=== PATIENT | female | born 1950 | race Caucasian/White ===

== ENCOUNTER 2023-10-05 13:36 | Emergency (ER) | payer MEDICARE, OTHER, SELFPAY ==
[2023-10-05 13:37] VITALS: BP 148/101
[2023-10-05 13:39] VITALS: BMI 33.2
--- NOTE | 2023-10-05 13:58 | ED.GENMED ---
History of Present Illness
General
Chief Complaint: Fall
Time Seen by Provider: 10/05/23 13:55
Travel History
Have you had any contact with someone who has COVID-19?: No
Do you have any symptoms of coronavirus? Fever > 100 degrees, chills, cough, shortness of breath, sore throat, loss of taste or smell, muscle aches, or headache?: No
History of Present Illness
History of Present Illness:
HPI: Patient came in by ambulance after a fall from independent living at [facility]. She says that she tripped over her feet. She had no preceding chest pain or shortness of breath. She struck her face. She denies anticoagulation but does take a
baby aspirin daily. She has no new neck pain. She does have rather significant pain at the right knee and had trouble getting up initially however was able to bear weight prior to arrival.
EXAM:
GENERAL: Well appearing in no distress
HEENT: Moist oral mucosa, there is a 2.5 cm laceration which is V-shaped over the nasal bone
CARDIOVASCULAR: No murmurs, normal heart rate and rhythm, No chest wall tenderness
PULMONARY: No respiratory distress, breath sounds are clear and equal
ABDOMEN: Soft with no peritoneal signs, no tenderness, elevated BMI
NEUROLOGIC: Excellent strength all extremities, no coordination deficits
PSYCHIATRIC: Appropriate mental status, normal insight and judgement
EXTREMITIES: Nontender, no edema, moves all extremities equally, there is a 1 cm laceration to the volar aspect of the left wrist, there is no foreign body noted, there is no bony tenderness at the distal radius/ulna. There is significant
ecchymosis and soft tissue swelling over the right patella with decreased active range of motion into flexion
SKIN: As above
ED COURSE:
2:05 PM: I initially evaluated patient
NUMBER AND COMPLEXITY OF PROBLEMS ADDRESSED AT THE ENCOUNTER
� Chronic conditions affecting care: Migraine headache, asthma/chronic cough, high blood pressure
� Acute Exacerbation and/or Progression of Chronic Illness: This is an acute problem
� Differential Diagnosis includes: Patellar fracture, intracranial hemorrhage, facial bone fracture, contusions
AMOUNT AND/OR COMPLEXITY OF DATA TO BE REVIEWED AND ANALYZED
� I performed an independent evaluation of and my interpretation is:
EKG:
CT: CAT scan of the brain and facial bones showed no acute abnormality other than soft tissue swelling
X-rays: X-ray of the right knee shows no patellar fracture but does show rather significant soft tissue swelling
Laboratory Studies:
Other:
� Review of other/old records: I reviewed records, the patient had a colonoscopy last year
� Clinical information was obtained by an independent historian: I spoke to the son at bedside
� Prescriptions/Medications Considered but not given:
� Further testing considered but not performed:
RISK OF COMPLICATIONS AND/OR MORBIDITY OR MORTALITY OF PATIENT MANAGEMENT
� Social determinants of health affecting care: Comes in from [facility] independent living
� Discussion with other providers:
� Escalation of care including admission/observation vs risk of discharge considered: Given patient's age on antiplatelet will obtain CT imaging of the facial bones and head and also obtain x-ray of the right knee. CT and x-rays
relatively unremarkable. I reassessed patient at 4:20 PM, she appears fairly comfortable at rest. We were able to assist her getting up and she was able to bear weight and says that she uses a walker at the facility and they can help her there as
well.
Past History
Past History
ED Past Medical History: GERD, HTN and Hypercholesterolemia
ED Past Surgical History: Gynecological
Social History
Tobacco: Non-smoker
Alcohol: None
Drug: None
Personal:
Living: with family
Employment: Retired
Family History
Family History: CAD
Phy Exam
Physical Exam
Physical Exam:
See HPI
Course
Orders/Labs/Results
Orders:
Orders
10/05/23 14:11
CT Facial Bones W/o Iv Contras Urgent
Comment:
Reason For Exam: trauma
CT Head W/o Iv Contrast Urgent
Comment:
Reason For Exam: trauma
Tetanus/Diphth/Acelpertussis [Adacel] 0.5 ml IM .ONCE ONE
CR Knee- Right 4 Or More View* Urgent
Comment:
Reason For Exam: trauma
Vital Signs
Initial and Last Documented VS:
Initial Vital Signs
Temp Pulse Resp BP Pulse Ox
97.4 F 95 16 148/101 98
10/05/23 13:37 10/05/23 13:37 10/05/23 13:37 10/05/23 13:37 10/05/23 13:37
Last Documented Vital Signs
Temp Pulse Resp BP Pulse Ox
97.4 F 95 16 148/101 98
10/05/23 13:37 10/05/23 13:37 10/05/23 13:37 10/05/23 13:37 10/05/23 13:37
Procedures
Laceration Closure
Left Anterior Wrist:
Status of Wound: clean
Description of Wound Edges: sharp
Anesthesia: 1% Lidocaine with epi
Skin Closure Material: 5-0 prolene
Number of sutures: 3
Bilateral Anterior Proximal Nose:
Status of Wound: clean
Description of Wound Edges: sharp
Preparation: cleaned with saline
Anesthesia: 1% Lidocaine with epi
Skin Closure Material: 5-0 prolene
Number of sutures: 3
*Critical Care Note
Total Time (30-74mins, 75-104mins- exclusive of procedures): Not Applicable
ED Attending Note
-
Portions of this chart may have been created with voice recognition software.� Occasional wrong word or��sound alike� substitutions may have occurred due to the inherent limitations of voice recognition software.
Discharge Plan
Departure
Patient Disposition: Home (Routine Discharge)
Date of Disposition: 10/05/23
Time of Disposition: 16:23
Patient with high blood pressure during this ER visit?: Yes
Discharge Problem:
Contusion
Instructions: Contusion (DC), Laceration Repair With Stitches (DC), BLOOD PRESSURE
Prescriptions:
No Action
celecoxib [Celebrex] 200 MG capsule
200 mg PO DAILY
mmkxdgfaoz-lgwiadaydwzzl-rwiy 1 EACH tablet
2 ea PO PRN PRN (Reason: pain)
pantoprazole 40 MG tablet,delayed release (DR/EC)
40 mg PO DAILY
docusate sodium 100 MG capsule
1 cap PO BID
montelukast [Singulair] 10 MG tablet
10 mg PO HS
fluticasone propionate 16 GRAM spray,suspension
2 spray intranasal HS
gc-ias-VP-Xn-Mq-pyvfvvp-lutein 1 EACH tablet
1 ea PO DAILY
cholecalciferol (vitamin D3) [Vitamin D3] 2,000 UNIT capsule
2,000 unit PO DAILY
Parafon Forte:
500 mg PO PRN PRN (Reason: pain)
guaifenesin 600 MG tablet extended release
600 mg PO BID
polyethylene glycol 3350 17 GRAMS powder in packet
8.5 grams PO HS
amitriptyline 10 MG tablet
20 mg PO HS
aspirin 81 MG tablet,chewable
81 mg PO DAILY
quinapril 20 MG tablet
40 mg PO DAILY
atorvastatin 40 MG tablet
40 mg PO QPM
indapamide 1.25 MG tablet
1.25 mg PO DAILY
fluticasone propionate 1 SPRAY spray,suspension
1 spray intranasal PRN PRN (Reason: ALLERGIES)
loratadine 10 MG tablet
10 mg PO HS
Pro-Air Inhaler
2 puff inhalation PRN PRN (Reason: allergies)
Tylenol Extra Strength
1,000 mg PO PRN PRN (Reason: pain)
Lactobacillus acidophilus [Acidophilus] 1 EACH capsule
2 cap PO DAILY
Referrals:
Ge Alvarado MD [Family Provider] -
Activity Restrictions/Additional Instructions:
The CAT scan of the brain shows no internal bleeding and the CAT scan of the facial bones shows no fracture. I recommend that you have the stitches removed from the face next Thursday by your primary care doctor. I recommend that you have the
stitches removed from the left wrist either on Thursday or when you see them on for your shot. The x-ray of the knee showed no sign of fracture but does show swelling. Continue using ice as needed. Return here if worse.
Interventions
Interventions:
*Risk Screen - Suicide Last Done: 10/05/23 13:39
*General Assessment Last Done: 10/05/23 13:39
*Neglect/Abuse Screening Last Done: 10/05/23 13:39
*ED COVID-19 Vaccine History Last Done: 10/05/23 13:39
ED-Musculoskeletal Assessment Last Done: 10/05/23 14:54
ED- Neurological Assessment Last Done: 10/05/23 14:54
ED-Skin Assessment Last Done: 10/05/23 14:54
[2023-10-05] MEDS: ADACEL 0.5 ML IM (16:28)
== END 2023-10-05 16:50 | disposition home or self-care (01) ==
LOC: EMR 13:36
PROVIDERS: EMERGENCY PHYSICIAN Emergency Medicine; FAMILY PHYSICIAN Family Medicine
DX: S80.01XA Contusion of right knee, initial encounter (principal); S01.21XA Laceration without foreign body of nose, initial encounter; S61.512A Laceration without foreign body of left wrist, initial encounter; W19.XXXA Unspecified fall, initial encounter; Z23 Encounter for immunization; M25.561 Pain in right knee; J45.909 Unspecified asthma, uncomplicated; E78.00 Pure hypercholesterolemia, unspecified; I10 Essential (primary) hypertension; K21.9 Gastro-esophageal reflux disease without esophagitis
CPT/HCPCS: 99284; 12011; 90471; 70450; 70486; 73564; 90715

== ENCOUNTER → 2023-10-27 10:25 | Outpatient (REF) | payer MEDICARE, OTHER, SELFPAY ==
[2023-10-27 11:20] LABS: ALT (SGPT) 29 U/L (0-35); AST (SGOT) 29 U/L (14-36); Albumin 4.9 g/dl (3.5-5.0); Alkaline Phosphatase 154 U/L (38-126); Blood Urea Nitrogen 16 mg/dl (7-17); Calcium 10.2 mg/dl (8.4-10.2); Carbon Dioxide 30 mmol/L (22-30); Chloride 94 mmol/L (98-107); Glucose 91 mg/dl (70-99); HDL Cholesterol 52 mg/dl; LDL Cholesterol, Calculated 75 mg/dl; Potassium 4.2 mmol/L (3.5-5.1); Sodium 132 mmol/L (135-145); Total Bilirubin 0.5 mg/dl (0.2-1.3); Total Cholesterol 157 mg/dl (50-199); Total Protein 7.6 g/dl (6.3-8.2); Triglyceride 152 mg/dl (10-149); Very Low Density Lipoprotein 30 mg/dl (0-30); eGFR > 60.00
[2023-10-27 11:31] LABS: Intact PTH 65.8 pg/ml (13.6-85.8)
== END ==
LOC: OLABPV 10:25
PROVIDERS: ATTENDING PHYSICIAN Family Medicine
DX: E78.2 Mixed hyperlipidemia (principal); E83.52 Hypercalcemia
CPT/HCPCS: 36415; 80053; 80061; 83970

== ENCOUNTER → 2023-11-10 15:20 | Outpatient (REF) | payer MEDICARE, OTHER, SELFPAY | LOC: WDC 15:20 | PROVIDERS: ATTENDING PHYSICIAN Family Medicine | DX: R92.8 Other abnormal and inconclusive findings on diagnostic imaging of breast (principal) | CPT/HCPCS: 77061; 77065 ==

== ENCOUNTER 2023-12-10 15:35 | Emergency (ER) | payer MEDICARE, OTHER, SELFPAY ==
[2023-12-10 15:40] VITALS: BP 130/95; BMI 31.7
[2023-12-10 16:11] VITALS: BMI 33.7
[2023-12-10 16:15] VITALS: BP 146/71
[2023-12-10 17:00] VITALS: BP 137/69
[2023-12-10 18:00] VITALS: BP 135/63
--- NOTE | 2023-12-10 18:20 | ED.GENMED ---
History of Present Illness
General
Chief Complaint: Fall
Source: patient
Exam Limitations: none
Time Seen by Provider: 12/10/23 16:05
Nursing documentation reviewed up to this point in time: agreed with
Travel History
Have you had any contact with someone who has COVID-19?: No
Do you have any symptoms of coronavirus? Fever > 100 degrees, chills, cough, shortness of breath, sore throat, loss of taste or smell, muscle aches, or headache?: No
History of Present Illness
History of Present Illness:
73-year-old female with past medical history as documented presents to the emergency room with her son for evaluation after mechanical fall with head trauma. Patient reports that she got her bed this morning and she lost her balance and fell
forward and struck the right side of her face on the floor. She did not pass out or lose consciousness. She was able to get up on her own and has been ambulatory since the fall. She does have significant bruising around the right eye and son
brought her to the emergency room to assess. She says that she has a mild headache but denies any other complaints. Denies any neck pain. Denies any back pain. Denies any chest or abdominal pain. She denies any pain in her extremities. She
denies any nausea or vomiting. She denies any loss of vision or eye pain. She denies being on any blood thinners.
Past History
Past History
ED Past Medical History: GERD, HTN and Hypercholesterolemia
ED Past Surgical History: Gynecological
Social History
Tobacco: Non-smoker
Alcohol: None
Drug: None
Personal:
Living: with family
Employment: Retired
Family History
Family History: CAD
Review of Systems
Review of Systems
All Other Systems: ROS reviewed and negative except as documented in HPI and ROS
Constitutional: Denies fever
EENT: Denies sore throat or runny nose
Respiratory: Denies cough or trouble breathing
Cardiac: Denies chest pain or palpitations
ABD/GI: Denies abdominal pain, nausea or vomiting
: Denies flank pain
Musculoskeletal: Denies neck pain or back pain
Neurological: Reports headache; Denies dizzy, weakness or numbness
Phy Exam
Physical Exam
Physical Exam:
General: Awake, alert, oriented x3; no acute distress
Head: Normocephalic, right periorbital ecchymosis and edema
Eyes: She has right periorbital edema and swelling of the eyelid with difficulty opening however conjunctiva are normal, EOMI without pain, pupils equal round and reactive to light bilaterally, visual ulrich intact
Throat: Airway intact, handling secretions
Neck: Trachea midline, no cervical spine tenderness, good range of motion in cervical spine without pain, prior surgical scar
Lungs: Breathing comfortably no distress
Heart: Regular rate and rhythm, no murmurs, gallops, or rubs; no rib tenderness
Abd: Soft, non distended, nontender
Back: No tenderness in the thoracic or lumbar spine and no signs of trauma to the back or flank; prior surgical scars on back
Neuro: Cranial nerves grossly intact, speech fluid, motor and sensory function intact upper and lower extremities
Skin: no rash
Extremities: Atraumatic, warm and well-perfused, full range of motion in all joints of upper and lower extremities without pain
Scores
Heart Failure Risk
Heart Failure Risk Score: Not Applicable
Heart Score for Chest Pain Patients
STEMI patient?: Not applicable
Withdrawal Assessment of Alcohol
Withdrawal Assessment Completed?: Not applicable
Course
Orders/Labs/Results
Orders:
Orders
12/10/23 15:38
CT Head W/o Iv Contrast Urgent
Comment:
Reason For Exam: head strike with right eye swelling
12/10/23 16:06
CT Cervical Spine W/o Iv Contr Urgent
Comment:
Reason For Exam: fall with headstrike
Vital Signs
Initial and Last Documented VS:
Initial Vital Signs
Temp Pulse Resp BP Pulse Ox
36.7 C 87 16 130/95 97
12/10/23 15:40 12/10/23 15:40 12/10/23 15:40 12/10/23 15:40 12/10/23 15:40
Last Documented Vital Signs
Temp Pulse Resp BP Pulse Ox
36.7 C 79 18 135/63 99
12/10/23 15:40 12/10/23 18:00 12/10/23 18:00 12/10/23 18:00 12/10/23 18:00
MDM/Problems Addressed
Differential Diagnosis Includes:
Orbital fracture, maxillary fracture, intracranial hemorrhage, periorbital hematoma
MDM/Problems Addressed:
73-year-old female presents for evaluation after mechanical fall with head trauma. She has right periorbital ecchymosis no other serious injuries. Eye exam is normal. Vital signs are normal. Rest of exam as above. Plan to check CT head and
cervical spine. Monitor closely reassess at the above.
CT head and cervical spine show right periorbital hematoma but no other acute pathology. Patient remains awake and alert well-appearing. Advised ice, rest, Tylenol/Motrin as needed. She will follow-up with her primary doctor next week. Spoke
about return precautions all questions answered.
*Radiology
Radiology exam reviewed: radiology read reviewed
*Pulse Oximetry
Patient hypoxic: no
*Critical Care Note
Total Time (30-74mins, 75-104mins- exclusive of procedures): Not Applicable
Data Reviewed
Source: patient and family (Son)
ED Attending Note
-
Portions of this chart may have been created with voice recognition software.� Occasional wrong word or��sound alike� substitutions may have occurred due to the inherent limitations of voice recognition software.
Discharge Plan
Departure
Patient Disposition: Home (Routine Discharge)
Date of Disposition: 12/10/23
Time of Disposition: 18:03
Patient with high blood pressure during this ER visit?: No
Discharge Problem:
Periorbital hematoma of right eye
Instructions: Hematoma
Prescriptions:
No Action
celecoxib [Celebrex] 200 MG capsule
200 mg PO DAILY
juiiwolzqt-tclndhfnqfocv-yxqk 1 EACH tablet
2 ea PO PRN PRN (Reason: pain)
pantoprazole 40 MG tablet,delayed release (DR/EC)
40 mg PO DAILY
docusate sodium 100 MG capsule
1 cap PO BID
montelukast [Singulair] 10 MG tablet
10 mg PO HS
fluticasone propionate 16 GRAM spray,suspension
2 spray intranasal HS
mx-cgy-LH-Ni-Pr-htaxbse-lutein 1 EACH tablet
1 ea PO DAILY
cholecalciferol (vitamin D3) [Vitamin D3] 2,000 UNIT capsule
2,000 unit PO DAILY
Parafon Forte:
500 mg PO PRN PRN (Reason: pain)
guaifenesin 600 MG tablet extended release
600 mg PO BID
polyethylene glycol 3350 17 GRAMS powder in packet
8.5 grams PO HS
amitriptyline 10 MG tablet
20 mg PO HS
aspirin 81 MG tablet,chewable
81 mg PO DAILY
quinapril 20 MG tablet
40 mg PO DAILY
atorvastatin 40 MG tablet
40 mg PO QPM
indapamide 1.25 MG tablet
1.25 mg PO DAILY
fluticasone propionate 1 SPRAY spray,suspension
1 spray intranasal PRN PRN (Reason: ALLERGIES)
loratadine 10 MG tablet
10 mg PO HS
Pro-Air Inhaler
2 puff inhalation PRN PRN (Reason: allergies)
Tylenol Extra Strength
1,000 mg PO PRN PRN (Reason: pain)
Lactobacillus acidophilus [Acidophilus] 1 EACH capsule
2 cap PO DAILY
Referrals:
Afton,Ge D., MD [Family Provider] - Follow up in 5-7 days
Activity Restrictions/Additional Instructions:
Thank you for visiting the Emergency Department at [facility].
1. Please schedule a follow up appointment as directed. Call first thing tomorrow morning to make an appointment.
2. If indicated, please take your medications as instructed and indicated on discharge paperwork.
3. If any of your symptoms do not improve, or persist, or become more severe within 6-12 hours, please return to the emergency department for further care.
4. Please return to the emergency department if you develop a headache, neck pain/stiffness, fever greater than 100.4F, chest pain, shortness of breath, persistent nausea, vomiting, slurred speech, difficulty walking, numbness/tingling, weakness,
signs of infection or any other symptoms that are worrisome to you.
Please call [phone] if you have any questions.
Interventions
Interventions:
*Risk Screen - Suicide Last Done: 12/10/23 15:40
*General Assessment Last Done: 12/10/23 16:12
*Neglect/Abuse Screening Last Done: 12/10/23 15:40
*ED COVID-19 Vaccine History Last Done: 12/10/23 15:40
*Nursing Disposition Last Done: 12/10/23 18:20
ED-Musculoskeletal Assessment Last Done: 12/10/23 16:18
ED- Neurological Assessment Last Done: 12/10/23 16:18
ED-Skin Assessment Last Done: 12/10/23 16:18
Discharge Date and Time
Print Language: COMORAN
== END 2023-12-10 18:31 | disposition home or self-care (01) ==
LOC: EMR 15:35
PROVIDERS: EMERGENCY PHYSICIAN Emergency Medicine; FAMILY PHYSICIAN Family Medicine
DX: S05.11XA Contusion of eyeball and orbital tissues, right eye, initial encounter (principal); W19.XXXA Unspecified fall, initial encounter
CPT/HCPCS: 99285; 70450; 72125

== ENCOUNTER → 2024-03-01 11:03 | Outpatient (REF) | payer MEDICARE, OTHER, SELFPAY ==
[2024-03-01 13:38] LABS: ALT (SGPT) 24 U/L (0-35); AST (SGOT) 25 U/L (14-36); Albumin 4.6 g/dl (3.5-5.0); Alkaline Phosphatase 135 U/L (38-126); Blood Urea Nitrogen 20 mg/dl (7-17); Calcium 10.2 mg/dl (8.4-10.2); Carbon Dioxide 27 mmol/L (22-30); Chloride 95 mmol/L (98-107); GGTP 51 U/L (12-43); Glucose 100 mg/dl (70-99); HDL Cholesterol 43 mg/dl; LDL Cholesterol, Calculated 80 mg/dl; Potassium 4.2 mmol/L (3.5-5.1); Sodium 132 mmol/L (135-145); Total Bilirubin 0.6 mg/dl (0.2-1.3); Total Cholesterol 146 mg/dl (50-199); Total Protein 6.8 g/dl (6.3-8.2); Triglyceride 117 mg/dl (10-149); Very Low Density Lipoprotein 23 mg/dl (0-30); eGFR > 60.00
== END ==
LOC: OLABPV 11:03
PROVIDERS: ATTENDING PHYSICIAN Family Medicine
DX: I10 Essential (primary) hypertension (principal); E78.2 Mixed hyperlipidemia; R74.8 Abnormal levels of other serum enzymes
CPT/HCPCS: 36415; 80053; 80061; 82977

== ENCOUNTER → 2024-03-17 16:06 | Outpatient (REF) | payer MEDICARE, OTHER, SELFPAY | LOC: RAD 16:06 | PROVIDERS: ATTENDING PHYSICIAN Family Medicine | DX: J45.21 Mild intermittent asthma with (acute) exacerbation (principal) | CPT/HCPCS: 71046 ==

== ENCOUNTER → 2024-04-08 10:36 | Outpatient (REF) | payer MEDICARE, OTHER, SELFPAY | LOC: RAD 10:36 | PROVIDERS: ATTENDING PHYSICIAN Nurse Practitioner; FAMILY PHYSICIAN Family Medicine | DX: R60.0 Localized edema (principal) | CPT/HCPCS: 93971 ==

== ENCOUNTER → 2024-04-29 13:52 | Outpatient (REF) | payer MEDICARE, OTHER, SELFPAY | LOC: WDC 13:52 | PROVIDERS: ATTENDING PHYSICIAN Family Medicine; OTHER PHYSICIAN Podiatrist Primary Podiatric Medicine | DX: Z12.31 Encounter for screening mammogram for malignant neoplasm of breast (principal); M79.672 Pain in left foot | CPT/HCPCS: 73630 ==

== ENCOUNTER → 2024-05-06 14:47 | Outpatient (REF) | payer MEDICARE, OTHER, SELFPAY ==
[2024-05-06 18:21] LABS: Urine Albumin Trace (Neg - Trace); Urine Bilirubin Negative (Negative); Urine Character Clear (Clear); Urine Color Yellow; Urine Glucose Negative (Negative); Urine Ketone Negative (Negative); Urine Leukocyte Negative (Negative); Urine Nitrite Negative (Negative); Urine Occult Blood Negative (Negative); Urine Urobilinogen Negative (Neg - 1+)
== END ==
LOC: CLAB 14:47
PROVIDERS: ATTENDING PHYSICIAN Family Medicine
DX: R60.0 Localized edema (principal)
CPT/HCPCS: 36415; 81003

== ENCOUNTER → 2024-05-11 13:19 | Outpatient (REF) | payer MEDICARE, OTHER, SELFPAY ==
[2024-05-11 15:29] LABS: ALT (SGPT) 25 U/L (0-35); AST (SGOT) 28 U/L (14-36); Albumin 4.5 g/dl (3.5-5.0); Alkaline Phosphatase 158 U/L (38-126); Blood Urea Nitrogen 16 mg/dl (7-17); Calcium 9.9 mg/dl (8.4-10.2); Carbon Dioxide 26 mmol/L (22-30); Chloride 95 mmol/L (98-107); Glucose 107 mg/dl (70-99); Potassium 4.3 mmol/L (3.5-5.1); Sodium 137 mmol/L (135-145); Total Bilirubin 0.6 mg/dl (0.2-1.3); Total Protein 6.9 g/dl (6.3-8.2); eGFR > 60.00
[2024-05-11 15:57] LABS: TSH Reflex To Free T4 1.85 uIU/ml (0.47-4.68)
== END ==
LOC: OLABPV 13:19
PROVIDERS: ATTENDING PHYSICIAN Family Medicine
DX: R60.0 Localized edema (principal)
CPT/HCPCS: 36415; 80053; 84443

== ENCOUNTER → 2024-05-24 16:34 | Outpatient (REF) | payer MEDICARE, OTHER, SELFPAY | LOC: RAD 16:34 | PROVIDERS: ATTENDING PHYSICIAN Family Medicine | DX: R60.0 Localized edema (principal); M79.605 Pain in left leg | CPT/HCPCS: 73590 ==

== ENCOUNTER 2024-06-21 13:57 | Outpatient (RCR) | payer MEDICARE, OTHER, SELFPAY | END 2024-06-21 23:59 | disposition home or self-care (01) | LOC: RPT 13:57 | PROVIDERS: ATTENDING PHYSICIAN Dermatology; FAMILY PHYSICIAN Family Medicine | DX: I89.0 Lymphedema, not elsewhere classified (principal); Z73.6 Limitation of activities due to disability | CPT/HCPCS: 97163; 97535; 97760 ==

== ENCOUNTER → 2024-06-24 15:06 | Outpatient (REF) | payer MEDICARE, OTHER, SELFPAY | LOC: RAD 15:06 | PROVIDERS: ATTENDING PHYSICIAN Family Medicine | DX: R60.0 Localized edema (principal) | CPT/HCPCS: 93970 ==

== ENCOUNTER → 2024-07-05 10:37 | Outpatient (REF) | payer MEDICARE, OTHER, SELFPAY ==
[2024-07-05 11:46] LABS: ALT (SGPT) 25 U/L (0-35); AST (SGOT) 29 U/L (14-36); Albumin 4.9 g/dl (3.5-5.0); Alkaline Phosphatase 140 U/L (38-126); Blood Urea Nitrogen 21 mg/dl (7-17); Carbon Dioxide 26 mmol/L (22-30); Chloride 96 mmol/L (98-107); Glucose 100 mg/dl (70-99); HDL Cholesterol 46 mg/dl; LDL Cholesterol, Calculated 82 mg/dl; Potassium 4.4 mmol/L (3.5-5.1); Sodium 138 mmol/L (135-145); Total Bilirubin 0.4 mg/dl (0.2-1.3); Total Cholesterol 149 mg/dl (50-199); Total Protein 7.5 g/dl (6.3-8.2); Triglyceride 108 mg/dl (10-149); Very Low Density Lipoprotein 21 mg/dl (0-30); eGFR > 60.00
[2024-07-05 11:57] LABS: GGTP 43 U/L (12-43)
== END ==
LOC: OLABPV 10:37
PROVIDERS: ATTENDING PHYSICIAN Family Medicine
DX: E78.2 Mixed hyperlipidemia (principal); R74.8 Abnormal levels of other serum enzymes
CPT/HCPCS: 36415; 80053; 80061; 82977

== ENCOUNTER 2024-07-30 04:10 | Inpatient (IN) | payer MEDICARE, OTHER, SELFPAY ==
[2024-07-29 19:59] VITALS: BP 106/56
[2024-07-29 20:23] LABS: % Basophils 0.1 % (0-2); % Eosinophils 0.1 % (0-6); % Immature Granulocytes 0.7 % (0-0.5); % Lymphocytes 10.3 % (20.5-51.1); % Neutrophils 78.8 % (42.2-75.2); Absolute Immature Granulocytes 0.1 10^3/uL (0-0.05); Absolute Lymphocytes 1.9 10^3/uL (1.2-3.4); Absolute Monocytes 1.9 10^3/uL (0.1-0.6); Absolute Neutrophils 14.8 10^3/uL (1.4-6.5); Hematocrit 33.2 % (37.0-47.0); Hemoglobin 12.2 g/dL (12.0-16.0); Mean Corp Hgb Conc. 36.7 g/dL (33.0-37.0); Mean Corpuscular Hgb 32.1 pg (27.0-31.0); Mean Corpuscular Volume 87.4 fL (81.0-99.0); Mean Platelet Volume 7.7 fL (7.4-10.4); Nucleated Red Blood Cells % 0 %; Platelet Count 368 10^3/uL (130-400); Red Cell Dist. Width 12.8 % (11.5-14.5); White Blood Cell Count 18.8 10^3/uL (4.8-10.8)
[2024-07-29 20:49] LABS: ALT (SGPT) 36 U/L (0-35); AST (SGOT) 54 U/L (14-36); Alkaline Phosphatase 113 U/L (38-126); Blood Urea Nitrogen 28 mg/dl (7-17); Calcium 9.2 mg/dl (8.4-10.2); Carbon Dioxide 27 mmol/L (22-30); Chloride 82 mmol/L (98-107); Glucose 144 mg/dl (70-99); Potassium 4.4 mmol/L (3.5-5.1); Sodium 119 mmol/L (135-145); Total Bilirubin 0.8 mg/dl (0.2-1.3); Total Protein 6.2 g/dl (6.3-8.2); eGFR > 60.00
[2024-07-29 22:32] LABS: Urine Albumin Trace (Neg - Trace); Urine Bilirubin Negative (Negative); Urine Character Clear (Clear); Urine Color Yellow; Urine Glucose Negative (Negative); Urine Ketone Negative (Negative); Urine Leukocyte 2+ (Negative); Urine Nitrite Negative (Negative); Urine Occult Blood Negative (Negative); Urine Specific Gravity 1.015 (<1.030); Urine Urobilinogen Negative (Neg - 1+)
[2024-07-29 22:42] VITALS: BP 123/66
[2024-07-29 22:49] LABS: Urine Red Blood Cell 0-2 /HPF (0-2); Urine Squamous Cell 16-20 /LPF (Few)
[2024-07-29 22:50] LABS: Urine Bacteria Moderate (Negative); Urine Urothelial Cell 0-2 /LPF (FEW)
[2024-07-29 23:00] VITALS: BP 131/62
[2024-07-30] VITALS (15 sets, daily range): BP systolic 98–170; BP diastolic 50–79; PULSE 86–96; O2SAT 96; BMI 31.3
--- NOTE | 2024-07-30 00:17 | ED.GENMED ---
History of Present Illness
<ROSA M Rey - Last Filed: 07/30/24 00:53>
General
Chief Complaint: Back Pain
Source: patient
Time Seen by Provider: 07/30/24 00:06
Nursing documentation reviewed up to this point in time: agreed with
History of Present Illness
History of Present Illness:
Pt is a 74 yo F with a history of total reconstructive surgery of the spine in 2013 and cervical spine surgery in 2016 who presents to the ED tonight for lower back pain x 1 week. Pt states that the back pain is located in her b/l lower back. She
explains that sometimes one side is worse than the other. She reports that at times the back pain radiates down her leg to her knee, which she describes the pain as electric. She states that the pain is intermittent, and rates it a 10/10 when it
radiates down her leg. She reports that the pain will come on when she at rest or moving. Pt denies having pain radiating down to her legs previously. Pt denies any recent trauma, falls, or injury. Pt reports that on Thursday she had darkened urine
with some blood in the urine, which has since resolved. She denies dysuria, burning with urination, numbness or tingling in lower extremities, fever, chills, abdominal pain. Pt states that she is currently on prednisone. She reports that she has a
prescription of Percocet, and her last dose of it was at 6:30pm.
Past History
<ROSA M Rey - Last Filed: 07/30/24 00:53>
Past History
ED Past Medical History: GERD, HTN and Hypercholesterolemia
ED Past Surgical History: Gynecological
Social History
Tobacco: Non-smoker
Alcohol: None
Drug: None
Personal:
Living: with family
Employment: Retired
Family History
Family History: CAD
Review of Systems
<ROSA M Rey - Last Filed: 07/30/24 00:53>
Review of Systems
Allergies reviewed?: Yes
Constitutional: Reports no symptoms
Respiratory: Reports no symptoms
Cardiac: Reports no symptoms
ABD/GI: Reports no symptoms
: Reports dark urine
Musculoskeletal: Reports back pain
Neurological: Reports no symptoms
Phy Exam
<Norma Martinez, [facility] - Last Filed: 07/30/24 00:53>
General Physical Exam
General Presentation: well appearing
General age: appears stated age
General Skin: warm
General Habitus: normal
General Mental: alert
General Hydration: appears well hydrated
Cardiovascular Exam
Cardiovascular Exam: regular rate/rhythm
Pulmonary Exam
Pulmonary Exam: lungs clear
Musculoskeletal Exam
Musculoskeletal Exam: back pain (pt in severe distress and pain when attempting to sit up. Pt could not lean forward due to pain)
Course
<Norma Martinez, [facility] - Last Filed: 07/30/24 00:53>
Orders/Labs/Results
Orders:
Orders
07/29/24 20:11
C-Reactive Protein Urgent
Comment: ADDED
Complete Blood Count/With Diff Urgent
Comprehensive Metabolic Panel Urgent
Erythrocyte Sed Rate Urgent
Comment: ADDED
Osmolality, Random Urine Urgent
Date Specimen was Collected: 07/29/24
Time Specimen was Collected: 20:06
Comment: ADDED
Serum Osmolality Urgent
Comment: ADDED
Urinalysis Reflex To Culture Urgent
Date Specimen was Collected: 07/29/24
Time Specimen was Collected: 20:06
Urine Microscopic Reflex Cult Urgent
Urine Sodium Urgent
Date Specimen was Collected: 07/29/24
Time Specimen was Collected: 20:06
Comment: ADDED
Urine Culture Urgent
ASHLYN Source: U
Specimen Description:
Date Specimen was Collected: 07/29/24
Time Specimen was Collected: 20:06
07/30/24 01:07
CT Abd/pelvis W Iv Cont Urgent
Comment:
Reason For Exam: severe LBP, hyponatremia, intermittent (?hematuria
07/30/24 01:13
Morphine Sulfate 4 mg IV NOW STA
07/30/24 03:38
Admit/Transfer Patient As Directed
Co-Sign Provider:
Level of Care: Inpatient admission
Assign to:: Telemetry
Physician / Group: hospitalist
Diagnosis: hyponatremia
Reason for Telemetry: Other
Other Reason for Telemetry: hyponatremia
Date to Stop Telemetry: 08/01/24
Time to Stop Telemetry: 11:00
Reason for Hospitalization: hyponatremia
Expected length of stay greater than two midnights?: Yes
ELOS- Estimated Length of Stay in days: 2
I certify the patient meets the requirements for IP care: Yes
PRN Pain Medication Management As Directed
May give lesser potent ordered pain med per pt: Yes
preference::
Protocol:: Medication orders for pain may be administered in a
manner that supports deferring to patient preference
when the pt is:
- Requesting an ordered lesser potent pain medication.
Least to most potent pain medications are defined
as: acetaminophen < NSAID < tramadol < opioids
(morphine, oxycodone, hydromorphone).
- Requesting a lesser dose of the same medication IF
ORDERED.
- Requesting a less intrusive route of administration
if both routes are prescribed by the provider (PO <
IV).
07/30/24 03:40
Code Status As Directed
Resuscitation Status: Full Code
07/30/24 03:48
PRN Pain Medication Management As Directed
May give lesser potent ordered pain med per pt: Yes
preference::
Protocol:: Medication orders for pain may be administered in a
manner that supports deferring to patient preference
when the pt is:
- Requesting an ordered lesser potent pain medication.
Least to most potent pain medications are defined
as: acetaminophen < NSAID < tramadol < opioids
(morphine, oxycodone, hydromorphone).
- Requesting a lesser dose of the same medication IF
ORDERED.
- Requesting a less intrusive route of administration
if both routes are prescribed by the provider (PO <
IV).
07/30/24 03:55
3% Sodium Chloride 250 ml [Sodium Chloride 3%] 250 ml IV ONCE
07/30/24 05:38
Acetaminophen [Tylenol] 650 mg PO Q4HPRN PRN
Albuterol [ProAIR HFA INHALER] 2 puff INH R Q6HPRN PRN
Bisacodyl [Dulcolax] 10 mg RECTAL [id number] PRN
Docusate W/Senna [Senokot-S] 1 tablet PO BIDPRN PRN
HYDROmorphone [Dilaudid] 0.5 mg IV Q4HPRN PRN
Ondansetron Injectable [Zofran] 4 mg IV Q6HPRN PRN
Oxycodone/Acetaminophen [Percocet 5/325] 1 tablet PO Q4HPRN PRN
fluticasone propionate 1 spray NASAL PRN PRN
07/30/24 05:38
NEPHROLOGY CONSULT Routine
Consulting Provider: Jessenia Lerma
Was physician already notified: Yes
Reason for consult: hyponatremia
Activity As Directed
Activity Level: With Assistance
Orthostatic Vital Signs As Directed
Orthostatic VS Frequency: Daily
Vital Signs As Directed
Frequency: Per unit guidelines
Pt Eval And Treat Routine
Activity Level: With Assistance
DX Deep Vein Thrombosis Video Routine
07/30/24 Breakfast
Regular
At Your Request: Limited Participation
Fluid Restriction: 1200 mL/day (40 oz)
Basic Metabolic Panel IN AM
Complete Blood Count/No Diff IN AM
Cortisol, Random IN AM
TSH IN AM
Uric Acid IN AM
07/30/24 08:00
Aspirin Chewable [Low Strength Aspirin] 81 mg PO DAILY
Celecoxib [Celebrex] 200 mg PO DAILY
Docusate Sodium [Colace] 100 mg PO BID
Lisinopril [Zestril] 40 mg PO DAILY
Pantoprazole [Protonix] 40 mg PO DAILY
07/30/24 10:46
BMP [Basic Metabolic Panel] Q4H
07/30/24 14:46
BMP [Basic Metabolic Panel] Q4H
07/30/24 18:00
Atorvastatin [Lipitor] 40 mg PO QPM
Enoxaparin Sodium [Lovenox] 40 mg SC QPM
07/30/24 18:46
BMP [Basic Metabolic Panel] Q4H
07/30/24 22:00
Montelukast Sodium [Singulair] 10 mg PO HS
Polyethylene Glycol Powder [Miralax] 8.5 grams PO HS
fluticasone propionate 2 spray NASAL HS
07/30/24 22:46
BMP [Basic Metabolic Panel] Q4H
08/01/24 11:00
DC Protocol for Telemetry ONCE
Abnormal Lab Results
07/29/24
20:11
WBC 18.8 H 10^3/uL
(4.8-10.8)
RBC 3.80 L 10^6/uL
(4.20-5.40)
Hct 33.2 L %
(37.0-47.0)
MCH 32.1 H pg
(27.0-31.0)
Abs Immat Gran (auto) 0.1 H 10^3/uL
(0-0.05)
Absolute Neuts (auto) 14.8 H 10^3/uL
(1.4-6.5)
Absolute Monos (auto) 1.9 H 10^3/uL
(0.1-0.6)
Immature Gran % 0.7 H %
(0-0.5)
Neutrophils % 78.8 H %
(42.2-75.2)
Lymphocytes % 10.3 L %
(20.5-51.1)
Monocytes % 10.0 H %
(1.7-9.3)
Sodium 119 L* mmol/L
(135-145)
Chloride 82 L mmol/L
(98-107)
BUN 28 H mg/dl
(7-17)
Glucose 144 H mg/dl
(70-99)
Serum Osmolality 259 L mOsm/kg
(275-300)
AST 54 H U/L
(14-36)
ALT 36 H U/L
(0-35)
C-Reactive Protein 34.80 H mg/L
(0.0-10.00)
Total Protein 6.2 L g/dl
(6.3-8.2)
Leukocyte Esterase Rfl 2+ A
(Negative)
Urine WBC (Reflex) 11-15 A /HPF
(0-5)
Urine Bacteria (Reflex) Moderate A
(Negative)
07/29/24 20:11
07/29/24 20:11
Vital Signs
Initial and Last Documented VS:
Initial Vital Signs
Temp Pulse Resp BP Pulse Ox
97.8 F 90 20 106/56 99
07/29/24 19:59 07/29/24 19:59 07/29/24 19:59 07/29/24 19:59 07/29/24 19:59
Last Documented Vital Signs
Temp Pulse Resp BP Pulse Ox
97.4 F 79 18 135/66 97
07/30/24 05:45 07/30/24 05:45 07/30/24 05:45 07/30/24 05:45 07/30/24 05:45
<Alcira Jacques, DO - Last Filed: 07/30/24 06:53>
Orders/Labs/Results
Orders:
Orders
07/29/24 20:11
C-Reactive Protein Urgent
Comment: ADDED
Complete Blood Count/With Diff Urgent
Comprehensive Metabolic Panel Urgent
Erythrocyte Sed Rate Urgent
Comment: ADDED
Osmolality, Random Urine Urgent
Date Specimen was Collected: 07/29/24
Time Specimen was Collected: 20:06
Comment: ADDED
Serum Osmolality Urgent
Comment: ADDED
Urinalysis Reflex To Culture Urgent
Date Specimen was Collected: 07/29/24
Time Specimen was Collected: 20:06
Urine Microscopic Reflex Cult Urgent
Urine Sodium Urgent
Date Specimen was Collected: 07/29/24
Time Specimen was Collected: 20:06
Comment: ADDED
Urine Culture Urgent
ASHLYN Source: U
Specimen Description:
Date Specimen was Collected: 07/29/24
Time Specimen was Collected: 20:06
07/30/24 01:07
CT Abd/pelvis W Iv Cont Urgent
Comment:
Reason For Exam: severe LBP, hyponatremia, intermittent (?hematuria
07/30/24 01:13
Morphine Sulfate 4 mg IV NOW STA
07/30/24 03:38
Admit/Transfer Patient As Directed
Co-Sign Provider:
Level of Care: Inpatient admission
Assign to:: Telemetry
Physician / Group: hospitalist
Diagnosis: hyponatremia
Reason for Telemetry: Other
Other Reason for Telemetry: hyponatremia
Date to Stop Telemetry: 08/01/24
Time to Stop Telemetry: 11:00
Reason for Hospitalization: hyponatremia
Expected length of stay greater than two midnights?: Yes
ELOS- Estimated Length of Stay in days: 2
I certify the patient meets the requirements for IP care: Yes
PRN Pain Medication Management As Directed
May give lesser potent ordered pain med per pt: Yes
preference::
Protocol:: Medication orders for pain may be administered in a
manner that supports deferring to patient preference
when the pt is:
- Requesting an ordered lesser potent pain medication.
Least to most potent pain medications are defined
as: acetaminophen < NSAID < tramadol < opioids
(morphine, oxycodone, hydromorphone).
- Requesting a lesser dose of the same medication IF
ORDERED.
- Requesting a less intrusive route of administration
if both routes are prescribed by the provider (PO <
IV).
07/30/24 03:40
Code Status As Directed
Resuscitation Status: Full Code
07/30/24 03:48
PRN Pain Medication Management As Directed
May give lesser potent ordered pain med per pt: Yes
preference::
Protocol:: Medication orders for pain may be administered in a
manner that supports deferring to patient preference
when the pt is:
- Requesting an ordered lesser potent pain medication.
Least to most potent pain medications are defined
as: acetaminophen < NSAID < tramadol < opioids
(morphine, oxycodone, hydromorphone).
- Requesting a lesser dose of the same medication IF
ORDERED.
- Requesting a less intrusive route of administration
if both routes are prescribed by the provider (PO <
IV).
07/30/24 03:55
3% Sodium Chloride 250 ml [Sodium Chloride 3%] 250 ml IV ONCE
07/30/24 05:38
Acetaminophen [Tylenol] 650 mg PO Q4HPRN PRN
Albuterol [ProAIR HFA INHALER] 2 puff INH R Q6HPRN PRN
Bisacodyl [Dulcolax] 10 mg RECTAL [id number] PRN
Docusate W/Senna [Senokot-S] 1 tablet PO BIDPRN PRN
HYDROmorphone [Dilaudid] 0.5 mg IV Q4HPRN PRN
Ondansetron Injectable [Zofran] 4 mg IV Q6HPRN PRN
Oxycodone/Acetaminophen [Percocet 5/325] 1 tablet PO Q4HPRN PRN
fluticasone propionate 1 spray NASAL PRN PRN
07/30/24 05:38
NEPHROLOGY CONSULT Routine
Consulting Provider: Jessenia Lerma
Was physician already notified: Yes
Reason for consult: hyponatremia
Activity As Directed
Activity Level: With Assistance
Orthostatic Vital Signs As Directed
Orthostatic VS Frequency: Daily
Vital Signs As Directed
Frequency: Per unit guidelines
Pt Eval And Treat Routine
Activity Level: With Assistance
DX Deep Vein Thrombosis Video Routine
07/30/24 Breakfast
Regular
At Your Request: Limited Participation
Fluid Restriction: 1200 mL/day (40 oz)
Basic Metabolic Panel IN AM
Complete Blood Count/No Diff IN AM
Cortisol, Random IN AM
TSH IN AM
Uric Acid IN AM
07/30/24 08:00
Aspirin Chewable [Low Strength Aspirin] 81 mg PO DAILY
Celecoxib [Celebrex] 200 mg PO DAILY
Docusate Sodium [Colace] 100 mg PO BID
Lisinopril [Zestril] 40 mg PO DAILY
Pantoprazole [Protonix] 40 mg PO DAILY
07/30/24 10:46
BMP [Basic Metabolic Panel] Q4H
07/30/24 14:46
BMP [Basic Metabolic Panel] Q4H
07/30/24 18:00
Atorvastatin [Lipitor] 40 mg PO QPM
Enoxaparin Sodium [Lovenox] 40 mg SC QPM
07/30/24 18:46
BMP [Basic Metabolic Panel] Q4H
07/30/24 22:00
Montelukast Sodium [Singulair] 10 mg PO HS
Polyethylene Glycol Powder [Miralax] 8.5 grams PO HS
fluticasone propionate 2 spray NASAL HS
07/30/24 22:46
BMP [Basic Metabolic Panel] Q4H
08/01/24 11:00
DC Protocol for Telemetry ONCE
Abnormal Lab Results
07/29/24
20:11
WBC 18.8 H 10^3/uL
(4.8-10.8)
RBC 3.80 L 10^6/uL
(4.20-5.40)
Hct 33.2 L %
(37.0-47.0)
MCH 32.1 H pg
(27.0-31.0)
Abs Immat Gran (auto) 0.1 H 10^3/uL
(0-0.05)
Absolute Neuts (auto) 14.8 H 10^3/uL
(1.4-6.5)
Absolute Monos (auto) 1.9 H 10^3/uL
(0.1-0.6)
Immature Gran % 0.7 H %
(0-0.5)
Neutrophils % 78.8 H %
(42.2-75.2)
Lymphocytes % 10.3 L %
(20.5-51.1)
Monocytes % 10.0 H %
(1.7-9.3)
Sodium 119 L* mmol/L
(135-145)
Chloride 82 L mmol/L
(98-107)
BUN 28 H mg/dl
(7-17)
Glucose 144 H mg/dl
(70-99)
Serum Osmolality 259 L mOsm/kg
(275-300)
AST 54 H U/L
(14-36)
ALT 36 H U/L
(0-35)
C-Reactive Protein 34.80 H mg/L
(0.0-10.00)
Total Protein 6.2 L g/dl
(6.3-8.2)
Leukocyte Esterase Rfl 2+ A
(Negative)
Urine WBC (Reflex) 11-15 A /HPF
(0-5)
Urine Bacteria (Reflex) Moderate A
(Negative)
07/29/24 20:11
07/29/24 20:11
Vital Signs
Initial and Last Documented VS:
Initial Vital Signs
Temp Pulse Resp BP Pulse Ox
97.8 F 90 20 106/56 99
07/29/24 19:59 07/29/24 19:59 07/29/24 19:59 07/29/24 19:59 07/29/24 19:59
Last Documented Vital Signs
Temp Pulse Resp BP Pulse Ox
97.4 F 79 18 135/66 97
07/30/24 05:45 07/30/24 05:45 07/30/24 05:45 07/30/24 05:45 07/30/24 05:45
<ROSA M Rey - Last Filed: 07/30/24 00:53>
*Critical Care Note
Total Time (30-74mins, 75-104mins- exclusive of procedures): Not Applicable
<Alcira Jacques DO - Last Filed: 07/30/24 06:53>
*Radiology
Radiology exam reviewed: radiology read reviewed
*Pulse Oximetry
Patient hypoxic: no
*Donation Specialist Interpretation
Rate: normal
Interpretation: normal
Rhythm: sinus
ED Attending Note
<ROSA M Rey - Last Filed: 07/30/24 00:53>
-
Portions of this chart may have been created with voice recognition software.� Occasional wrong word or��sound alike� substitutions may have occurred due to the inherent limitations of voice recognition software.
<Alcira Jacques DO - Last Filed: 07/30/24 06:53>
ED Attending Note
Patient seen and examined by attending physician: Yes
I performed the substantive portion of visit, reviewed & personally made and approve the management plan that is documented in note by myself or ALEJANDRO.: Yes
ED Attending Note:
This is a 74-year-old woman with history of hyperlipidemia asthma, hypertension as well as history of cervical and lumbar disc disease as well as scoliosis. History of thoracic scoliosis repair with kayla placement as well as lumbar disc disease
surgery 2012. She has done well since that surgery with no complaints of low back pain. She did suffer a fall in November but no reported spinal injury and no back pain until more recently when she developed generalized low back pain over 1 week ago.
Evaluated by her orthopedics at [facility] last week and placed on short course of tramadol and prednisone taper which completed today. She notes only minimal improvement in low back pain, follow-up call to her orthopedist and she
was prescribed Percocet today. She has had intermittent radiation of pain down bilateral posterior thighs but denies weakness nor numbness, no saddle anesthesia, no difficulty moving her bowels or bladder but she did notice her urine was somewhat
darker in color on Thursday, 5 days ago and since then she has been attempting to drink more water throughout the week thinking that she was dehydrated.
No recurrent falls, no fever nor chills.
Back pain is much worse with attempted movement, improves with sitting or lying still.
GENERAL: 74-year-old woman appears her stated age, awake and alert, pleasant, appears comfortable while lying Semi-Ling's but markedly uncomfortable with attempted sitting up or repositioning. Afebrile. Normotensive.
EYE: pupils equal and reactive. anicteric
NECK: Supple, nontender, no meningismus, no significant adenopathy.
ENT: oral mucosa is moist. No rhinorrhea.
CARDIAC: Regular rate and rhythm. no murmur.
LUNGS: Clear breath sounds bilaterally, no acute respiratory distress, no wheezes/rales/rhonchi
ABDOMEN: Rotund, soft, nondistended, without focal tenderness, no r/g, no cvat. normoactive BS.
BACK: Mild paravertebral lumbar tenderness to palpation. Markedly restricted lumbar range of motion related to pain. Straight leg raising mildly positive bilaterally.
NEUROLOGICAL: Alert and oriented x3, no focal neuro deficits. Motor strength is 5/5 bilaterally. Gross sensation is intact.
SKIN: Warm and dry, normal color, skin intact. No rash.
MUSCULOSKELETAL: No C/C/E. peripheral pulses are full and equal b/l. No palpable tenderness.
PSYCH: Normal and appropriate interaction.
Concern for low back strain, exacerbation of lumbar disc disease, she has not had a fever but labs notable for elevated white blood cell count of 18. Concern for infectious process versus elevated white blood cell count related to recent
prednisone. Will check inflammatory markers.
Other notable findings on labs is significant hyponatremia at 119. This may be related to patient purposely increasing her fluid intake this week.
Clinically appears euvolemic. She denies weakness.
Urinalysis shows moderate bacteria, 11-15 WBCs but appears to be contaminated specimen with 16-20 squamous epithelial cells. She denies dysuria and urgency nor frequency. With back pain must consider renal source such as kidney stone, perhaps
pyelonephritis.
Will check CT abdomen pelvis.
Will check serum osm, urine osm, urine sodium.
Case discussed with nephrology. Awaiting urine osmolality if this is normal recommend fluid restrict and repeat in the a.m.
03:20
Urine osmolality is high, 592. Serum osmolality is low at 259.
Nephrology notified, recommend starting 3% hypertonic saline at 25 cc/h.
Hospitalist notified.
Discharge Plan
Departure
Patient Disposition: Admit
Date of Disposition: 07/30/24
Time of Disposition: 02:45
Admit to: IMU
Admit to doctor: Ambreen
Presentation/result/management discussed w/ accepting MD/DO: Hospitalist
Condition: Serious
Discharge Problem:
acute severe hyponatremia, Acute bilateral low back pain
Interventions
Interventions:
*Risk Screen - Suicide Last Done: 07/29/24 22:29
*General Assessment Last Done: 07/29/24 22:29
*Neglect/Abuse Screening Last Done: 07/29/24 22:29
*ED COVID-19 Vaccine History Last Done: 07/29/24 22:29
*Nursing Disposition Last Done: 07/30/24 05:45
ED-Musculoskeletal Assessment Last Done: 07/29/24 22:47
Discharge Date and Time
Discharge Date/Time: 07/30/24 05:46
[2024-07-30 00:58] LABS: Erythrocyte Sed Rate 14 mm/hour (0-20)
[2024-07-30 01:27] LABS: Osmolality Serum 259 mOsm/kg (275-300)
[2024-07-30] MEDS: MORPHINE SULFATE 4 MG IV (01:29)
[2024-07-30 01:43] LABS: Osmolality Urine 592 mOsm/kg (300-900)
[2024-07-30 02:00] LABS: Urine Sodium 30 mmol/L (30-90)
--- NOTE | 2024-07-30 03:22 | HPS.HSE ---
Family Physician
-
Family Physician: Ge Alvarado
Chief Complaint
-
Back pain
History of Present Illness
This is a 74-year-old female with history of degenerative disease of the spine status post extensive back surgery who presents to the emergency department with back pain and was found to be having hyponatremia.
Patient reports that she had been well with chronic osteoarthritis up until about 1 week ago. She reported that she was having some worsening back pain as well as her chronic known right hip pain. She saw orthopedic who put her on a prednisone
taper. The patient reports that the pain is in the back and shoots down the legs bilaterally. Sometimes shoots down the front of the leg sometimes to the back. She denies any numbness or tingling. She denies any weakness. The pain is worse with
getting up and ambulating. She denies any fevers or chills. She reported that her urine was dark a few days ago but denies any dysuria or hematuria, frequency, incontinence or urgency. Patient reports that due to the dark urine she has been
drinking more fluids (water) than she normally does. She feels the prednisone has made her more dehydrated. She reports drinking at least six 8 ounce cups of water per day. She reports that p.o. intake has been otherwise unchanged. There has
been no medication changes. She denies prior history of hyponatremia. She is not on any gabapentin or antidepressants. She reports history of chronic lymphedema recently diagnosed but there has been no increase in diuretic due to that. The
patient takes indapamide 1.5 mg daily and has been on that for a long time. She also takes Celebrex 200 mg daily and has been on that for a long time.
In the emergency department she was afebrile, blood pressure was 120/60 with a pulse of 85. Sodium was 119, BUN 28 creatinine 0.8. Rest of the electrolytes were normal. CBC was notable for a white count of 18,000 but otherwise unremarkable. ESR
was negative. CRP was slightly elevated at 34, UA shows some leukocyte esterase with moderate bacteria but also many squamous cells. Urine awesome was 590, urine sodium was 30. Case discussed with nephrology.
A CT of the abdomen pelvis with contrast shows no bowel or renal obstruction, moderate to large amount of stool in the colon suggestive of constipation, mild diverticulitis is, extensive prior fusion rods from the thoracic spine to the sacrum.
Right hip arthroplasty.
Medical History
Past Medical History
Past Medical History: Reports Asthma, GERD, HTN and Hypercholesterolemia
Additional Past Medical History:
Migraine headache
Past Surgical History: Reports Orthopedic (Left total hip arthroplasty, extensive spine surgery including cervical and lumbosacral spine)
Additional Past Surgical History:
Lumpectomy
Social History
Tobacco: Non-smoker
Alcohol: None
Drug: None
Employment: Retired
Family History
Family History: Not pertinent
Allergies / Home Medications
Allergies reflects when Allergies were last updated in [facility].
Home Medications with original date entered in [facility]
Allergy/Medication List:
Allergies
Allergy/AdvReac Type Severity Reaction Status Date / Time
hydrochlorothiazide Allergy Mild Rash Verified 07/29/24 20:06
codeine AdvReac Mild nausea Verified 07/29/24 20:06
erythromycin base AdvReac Mild nausea Verified 07/29/24 20:06
Home Medications
Parafon Forte: 500 mg PO PRN PRN pain 12/04/10
mlxntsnwrh-baarytphbrvly-tgrpcuqq 50 mg-325 mg-40 mg tablet 2 ea PO PRN PRN pain 12/04/10
celecoxib 200 mg capsule (Celebrex) 200 mg PO DAILY 12/04/10
cholecalciferol (vitamin D3) 50 mcg (2,000 unit) capsule (Vitamin D3) 2,000 unit PO DAILY 12/04/10
docusate sodium 100 mg capsule 1 cap PO BID 12/04/10
fluticasone propionate 50 mcg/actuation nasal spray,suspension 2 spray intranasal HS 12/04/10
montelukast 10 mg tablet (Singulair) 10 mg PO HS 12/04/10
ufmmxdro-riu-ED 0.4 mg-calcium 162 mg-iron 18 ns-zuzepsp-waxuwu tablet 1 ea PO DAILY 12/04/10
pantoprazole 40 mg tablet,delayed release 40 mg PO DAILY 12/04/10
amitriptyline 10 mg tablet 20 mg PO HS 12/30/10
aspirin 81 mg chewable tablet 81 mg PO DAILY 12/30/10
guaifenesin 600 mg tablet,extended release 600 mg PO BID 12/30/10
polyethylene glycol 3350 17 gram oral powder packet 8.5 grams PO HS 12/30/10
quinapril 20 mg tablet 40 mg PO DAILY 12/30/10
atorvastatin 40 mg tablet 40 mg PO QPM 01/19/17
Lactobacillus acidophilus (Acidophilus capsule) 2 cap PO DAILY 02/08/21
Pro-Air Inhaler 2 puff inhalation PRN PRN allergies 02/08/21
Tylenol Extra Strength 1,000 mg PO PRN PRN pain 02/08/21
fluticasone propionate 50 mcg/actuation nasal spray,suspension 1 spray intranasal PRN PRN ALLERGIES 02/08/21
indapamide 1.25 mg tablet 1.25 mg PO DAILY 02/08/21
loratadine 10 mg tablet 10 mg PO HS 02/08/21
Review of Systems
-
Constitutional: Reports No Symptoms
EENT: Reports No Symptoms
Respiratory: Reports No Symptoms
Cardiac: Reports No Symptoms
Abdomen/GI: Reports No Symptoms
: Reports Dark Urine
Musculoskeletal: Reports Joint Pain and Edema
Skin: Reports No Symptoms
Neurological: Reports No Symptoms
Endocrine: Reports No Symptoms
Hematologic/Lymphatic: Reports No Symptoms
Psych: Reports No Symptoms
Physical Exam
Vital Signs
Vital Signs
Temp Pulse Resp BP Pulse Ox
97.8 F 86 19 123/66 98
07/29/24 19:59 07/29/24 22:45 07/29/24 22:45 07/29/24 22:42 07/29/24 22:45
Physical Exam
General: Well Developed, Well Nourished and Pain
HEENT: NormoCephalic, Anicteric, Moist mucous membranes and Atraumatic
Respiratory: Clear
Cardiac: S1/S2 and Regular Rhythm
Breast: Deferred by me
GI: Soft, Non Tender, Non Distended and Normal Bowel Sounds
Rectal: Deferred by Provider
Genito-urinary: Clear Urine and No costovertebral tender
Musculoskeletal: No Clubbing, No Cyanosis and No Edema
Skin: Warm
Neuro: AO x 3, No Motor Deficits and Nonfocal/grossly intact
Hematologic/Lymphatic: No Lymphadenopathy
Psych: Calm
Laboratory Results
-
07/29/24 20:11
07/29/24 20:11
Laboratory Results
Total Bilirubin 0.8 mg/dl (0.2-1.3) 07/29/24 20:11
AST 54 U/L (14-36) H 07/29/24 20:11
ALT 36 U/L (0-35) H 07/29/24 20:11
Alkaline Phosphatase 113 U/L (38-126) 07/29/24 20:11
Data Reviewed
-
CT Scan: Report Reviewed by me
Lab Data: Labs Reviewed by me
Old Records: Reviewed
Impression/Plan
-
IMPRESSION:
Patient with lumbosacral back pain with radicular symptoms presenting to the emergency department with acute on chronic back pain. Per the patient she just finished a course of prednisone taper and the pain is not completely resolved still present.
She was supposed to start Percocet today before coming to the ED for evaluation. In the ED she was found to have a sodium of 119. The rest of her labs are notable for a leukocytosis to 18,[address] of the abdomen pelvis
shows no acute abnormality. UA shows no evidence of acute infection. She is well-appearing, alert oriented x 3 with no signs of encephalopathy. She is hemodynamically stable and responding appropriately.
PLAN:
1. Hyponatremia - Currently asymptomatic with sodium of 119. Uosm is relatively quite high at 590 and Antoni is boderline at 30. Patient is on indapamide chronically but does not appear to be hypovolemic. No focal or global neurological deficits.
Labs c/w SIADH but etiology uncertain. She appears asymptomatic. d/w nephrology
- admit to tele for now
- 3% saline at 25 ml/hr, q 4hr sodium, stop when serum sodium > 124
- fluid restriction to 1 L / day
- check tsh, am cortisol, uric acid
- hold indapamide, amitriptyline
- check orthostatic vs
- pain control
- Nephrology consultation.
2. Back pain - Lumbosacral pain with radiculopathy. No evidence of cord compression.
- continue chronic celebrex (?hyponatremia may be an issue)
- prn percocet as tramadol ineffective
- PT evaluation
- avoiding high dose nsaids due to hyponatremia
3. HTN
- continue diltiazem and lisinopril
- check orthostatics
4. Constipation
- bowel prep
5. leukocytosis - no signs of acute infection, suspect steroid related, recent taper. Monitor for now.
DVT PPX - lovenox sq
Code status - full code
[2024-07-30] MEDS: SODIUM CHLORIDE 3% 250 IV (04:31)
[2024-07-30 06:57] LABS: Hematocrit 34.2 % (37.0-47.0); Hemoglobin 12.1 g/dL (12.0-16.0); Mean Corp Hgb Conc. 35.4 g/dL (33.0-37.0); Mean Corpuscular Hgb 30.9 pg (27.0-31.0); Mean Corpuscular Volume 87.5 fL (81.0-99.0); Mean Platelet Volume 7.8 fL (7.4-10.4); Platelet Count 359 10^3/uL (130-400); Red Blood Cell Count 3.91 10^6/uL (4.20-5.40); Red Cell Dist. Width 12.9 % (11.5-14.5); White Blood Cell Count 16.5 10^3/uL (4.8-10.8)
[2024-07-30 07:41] LABS: Blood Urea Nitrogen 24 mg/dl (7-17); Calcium 9.2 mg/dl (8.4-10.2); Carbon Dioxide 29 mmol/L (22-30); Chloride 88 mmol/L (98-107); Estimated Creatinine Clearance 69 ml/min; Glucose 93 mg/dl (70-99); Potassium 4.1 mmol/L (3.5-5.1); Sodium 126 mmol/L (135-145); Uric Acid 4.1 mg/dl (2.5-6.2); eGFR > 60.00
--- NOTE | 2024-07-30 07:52 | PTCARENOTE ---
Receive pt from ER. Pt alert oriented X3, in no distress. Pt pulled over from the stretcher to her bed. Pt states that her lower back pain=3-4 as long she is not moving. Pt oriented to the room, call sandy within reach. Pt on NSR on telemonitor.
VSS(T=97.4, HR=79, HR=18, MY=823/66, SpO2=97% on RA). Pt was able to get OOB w x1 assist w/RW t go to the bathroom. Pt resting in her bed and ready to order her breakfast at this time.
[2024-07-30 08:10] LABS: Cortisol, Random 7.8 ug/dl; TSH 1.14 uIU/ml (0.47-4.68)
--- NOTE | 2024-07-30 09:00 | PTCARENOTE ---
Made Dr. Lerma aware of pt's Sodium result from 0600, up to [address] Lerma indicated to stop 3% Sodium infusion, continue with ordered every 4 hrs BMPs. Updated pt on plan.
[2024-07-30] MEDS: CELEBREX 200 MG PO (09:05)
[2024-07-30] MEDS: COLACE 100 MG PO ×2 (09:05→22:23)
[2024-07-30] MEDS: FLUSH (NSS) 1 FLUSH IV (09:06)
[2024-07-30] MEDS: ZESTRIL 40 MG PO (09:06)
[2024-07-30] MEDS: PROTONIX 40 MG PO (09:06)
[2024-07-30] MEDS: LOW STRENGTH ASPIRIN 81 MG PO (09:06)
--- NOTE | 2024-07-30 09:31 | W.PN.HOSP.TC ---
Today's Communication/Plan
-
Monitoring sodium closely. Nephrology consult. X-ray of the back.
Assessment / Plan
Assessment / Plan
Physical Exam
General: Acutely ill. Distress due to back pain.
HEENT: NormoCephalic, Anicteric, Moist mucous membranes and Atraumatic
Respiratory: Clear
Cardiac: S1/S2 and Regular Rhythm
Breast: Deferred by me
GI: Soft, Non Tender, Non Distended and Normal Bowel Sounds
Rectal: Deferred by Provider
Genito-urinary: Clear Urine and No costovertebral tender
Musculoskeletal: Tender lumbar area and decreased range of motion. No Clubbing, No Cyanosis and No Edema
Skin: Warm
Neuro: AO x 3, No Motor Deficits and Nonfocal/grossly intact
Hematologic/Lymphatic: No Lymphadenopathy
Psych: Calm
A/P:
1. Hyponatremia - Currently asymptomatic with sodium of 119. Uosm is relatively quite high at 590 and Antoni is boderline at 30. Patient is on indapamide chronically but does not appear to be hypovolemic. No focal or global neurological deficits.
Labs c/w SIADH but etiology uncertain. She appears asymptomatic. d/w nephrology
- admitted to tele for now
- 3% saline at 25 ml/hr, q 4hr sodium ordered by physician overnight---> today sodium 126-127 therefore stopped 3% saline this morning around 9 AM. Requires intensive monitoring of sodium.
- fluid restriction to 1 L / day
- check tsh, am cortisol, uric acid
- hold indapamide, amitriptyline
- check orthostatic vs
- pain control
- Nephrology consultation pending.
2. Back pain - Lumbosacral pain with radiculopathy. No evidence of cord compression.
- continue chronic celebrex (?hyponatremia may be an issue)
- prn percocet as tramadol ineffective
- PT evaluation
- avoiding high dose nsaids due to hyponatremia
-Check x-ray lumbar area
-Follow-up with orthopedic as outpatient
-PT OT eval
3. HTN
- continue diltiazem and lisinopril
- check orthostatics
4. Constipation
- bowel prep
5. leukocytosis - no signs of acute infection, suspect steroid related, recent taper. Monitor for now.
DVT PPX - lovenox sq
Code status - full code
Total time spent on today's encounter was 52 minutes which included time spent in counseling the patient/family regarding diagnosis and treatment plan as listed above, goals of care, and symptom management. Case was discussed with nursing staff,
specialists, and care coordinators/case management. All labs and imaging personally reviewed by me. Remainder the time spent in detailed review of previous records, lab data, imaging, and other medical provider documentation.
Anticipated Discharge: > 48 hours
Subjective/Interval History
-
Date of Service: July 30, 2024
Patient still has back pain radiated to her left lower extremity anteriorly up to the knee. No bowel bladder incontinence. Afebrile. Alert and oriented.
Objective Data
-
Labs:
Laboratory Results
07/30/24 07/30/24 07/30/24
06:43 10:46 14:46
WBC 16.5 H
Hgb 12.1
Hct 34.2 L
Plt Count 359
Sodium 126 L Pending Pending
Potassium 4.1 Pending Pending
Chloride 88 L Pending Pending
Carbon Dioxide 29 Pending Pending
BUN 24 H Pending Pending
Creatinine 0.6 Pending Pending
Glucose 93 Pending Pending
Calcium 9.2 Pending Pending
07/30/24 07/30/24
18:46 22:46
WBC
Hgb
Hct
Plt Count
Sodium Pending Pending
Potassium Pending Pending
Chloride Pending Pending
Carbon Dioxide Pending Pending
BUN Pending Pending
Creatinine Pending Pending
Glucose Pending Pending
Calcium Pending Pending
Vital Signs:
Vital Signs
Temp Pulse Resp BP Pulse Ox
98.1 F 82 20 108/77 97
07/30/24 07:30 07/30/24 09:06 07/30/24 07:30 07/30/24 09:06 07/30/24 07:30
--- NOTE | 2024-07-30 10:52 | CM ---
Patient admitted from her home at [facility]. She lives alone and is independent using rollator in community and rolling walker in apartment. She also has cane, and shower rails. She has built in shower seat but is thinking of buying shower seat.
She has son in area who is supportive.
She does not anticipate any discharge needs.
PCP Dr. Ge Alvarado
Pharmacy: [id number]
PLAN:home no needs.
[2024-07-30] MEDS: PERCOCET 5/325 1 TABLET PO ×2 (11:05→16:16)
[2024-07-30 11:29] LABS: Blood Urea Nitrogen 24 mg/dl (7-17); Calcium 9.3 mg/dl (8.4-10.2); Carbon Dioxide 27 mmol/L (22-30); Chloride 89 mmol/L (98-107); Estimated Creatinine Clearance 69 ml/min; Glucose 159 mg/dl (70-99); Potassium 3.9 mmol/L (3.5-5.1); Sodium 127 mmol/L (135-145); eGFR > 60.00
[2024-07-30 15:30] LABS: Blood Urea Nitrogen 29 mg/dl (7-17); Calcium 8.9 mg/dl (8.4-10.2); Carbon Dioxide 28 mmol/L (22-30); Chloride 91 mmol/L (98-107); Estimated Creatinine Clearance 52 ml/min; Glucose 118 mg/dl (70-99); Sodium 126 mmol/L (135-145); eGFR > 60.00
--- NOTE | 2024-07-30 15:54 | W.CON.NEPH ---
Consultation
-
Date/Time Consultation Requested: 07/30/24 0538
Date/Time Consultation Performed: 07/30/24 1630
Requesting Provider: Anita Kaur
Performing Provider: Jessenia Hamlin
Reason for Consultation: hyponatremia
Medical History
-
Chief Complaint: Back pain
History of Present Illness:
74-year-old female with history HTN on QUinapril, Diltiazem, HLD on statin, GERD on PPI, degenerative disease of the spine status post extensive back surgery who presents to the emergency department with back pain. She reports that she had been
well with chronic osteoarthritis up until about 1 week ago had worsening back pain before and saw orthopedic who put her on a prednisone taper. pain is worse with getting up and ambulating. She initially has constipation and took
laxative subsequently had diarrhea for 3days. Now she is constipated for 2days. She noted that her urine was dark a few days ago and started drinking more liquids. denies any dysuria or hematuria, frequency, incontinence or urgency. She typically
drinks 6 of 8 ounce glasses. She noted on labs sodium of 119, BUN 28, cr 0.9, WBC 18k with no prior history of hyponatremia. She reports history of chronic lymphedema recently diagnosed but there has been no increase in diuretic due to that, wears
compression socks. The patient takes indapamide 1.5 mg daily and has been on that for a long time. She also takes Celebrex 200 mg daily chronically for OA and fibromyalgia.
CT of the abdomen pelvis with contrast shows moderate to large amount of stool in the colon suggestive of constipation, mild diverticulitis and post op changes from before.
She still c/o back pain specially when moving, at rest she is fine. No n/v. No abd pain. No CP or sob.
Past Medical History
Asthma, GERD, HTN and Hypercholesterolemia, Migraine headache, OA, fibromyalgia
Past Surgical History: Other (Left total hip arthroplasty, extensive spine surgery including cervical and lumbosacral spine, Lumpectomy)
Social History
Tobacco: Non-Smoker
Alcohol: None
Drug: None
Employment: Retired
Family History
no CKD
Family History: Not Pertinent
Allergies / Home Medications
Allergy/AdvReac Type Severity Reaction Status Date / Time
hydrochlorothiazide Allergy Mild Rash Verified 07/29/24 20:06
codeine AdvReac Mild nausea Verified 07/29/24 20:06
erythromycin base AdvReac Mild nausea Verified 07/29/24 20:06
�Medication �Instructions �Recorded �Confirmed �Type
Parafon Forte: 500 mg PO PRN PRN pain 12/04/10 07/30/24 History
znsvtjftiy-huxhxeqqkmszk-ihxhtmnl 2 ea PO PRN PRN pain 12/04/10 07/30/24 History
50 mg-325 mg-40 mg tablet
celecoxib 200 mg capsule (Celebrex) 200 mg PO DAILY 12/04/10 07/30/24 History
cholecalciferol (vitamin D3) 50 2,000 unit PO DAILY 12/04/10 07/30/24 History
mcg (2,000 unit) capsule (Vitamin
D3)
docusate sodium 100 mg capsule 1 cap PO BID 12/04/10 07/30/24 History
fluticasone propionate 50 2 spray intranasal HS 12/04/10 07/30/24 History
mcg/actuation nasal
spray,suspension
montelukast 10 mg tablet 10 mg PO HS 12/04/10 07/30/24 History
(Singulair)
kmsvqzwz-hos-DR 0.4 mg-calcium 162 1 ea PO DAILY 12/04/10 07/30/24 History
mg-iron 18 fh-ifbxbtg-qgcrce tablet
pantoprazole 40 mg tablet,delayed 40 mg PO DAILY 12/04/10 07/30/24 History
release
amitriptyline 10 mg tablet 20 mg PO HS 12/30/10 07/30/24 History
aspirin 81 mg chewable tablet 81 mg PO QPM 12/30/10 07/30/24 History
guaifenesin 600 mg tablet,extended 600 mg PO BID 12/30/10 07/30/24 History
release
polyethylene glycol 3350 17 gram 8.5 grams PO HS 12/30/10 07/30/24 History
oral powder packet
quinapril 20 mg tablet 40 mg PO DAILY 12/30/10 07/30/24 History
atorvastatin 40 mg tablet 40 mg PO QPM 01/19/17 07/30/24 History
Lactobacillus acidophilus 1 cap PO DAILY 02/08/21 07/30/24 History
(Acidophilus capsule)
Pro-Air Inhaler 2 puff inhalation PRN PRN allergies 02/08/21 07/30/24 History
Tylenol Extra Strength 1,000 mg PO PRN PRN pain 02/08/21 07/30/24 History
fluticasone propionate 50 1 spray intranasal PRN PRN 02/08/21 07/30/24 History
mcg/actuation nasal ALLERGIES
spray,suspension
indapamide 1.25 mg tablet 1.25 mg PO DAILY 02/08/21 07/30/24 History
Ruba 1 PO QPM 07/30/24 History
diltiazem HCl 360 mg capsule,24 360 mg PO DAILY 07/30/24 07/30/24 History
hr,extended release
Review of Systems
-
All complete 12 point ROS have been inquired and found negative other than stated in HPI
Physical Exam
Vital Signs
Vital Signs
Temp Pulse Resp BP Pulse Ox
97.4 F 62 20 149/68 94
07/30/24 11:00 07/30/24 11:00 07/30/24 11:00 07/30/24 11:00 07/30/24 11:00
Lab Results
WBC 16.5 10^3/uL (4.8-10.8) H 07/30/24 06:43
RBC 3.91 10^6/uL (4.20-5.40) L 07/30/24 06:43
Hgb 12.1 g/dL (12.0-16.0) 07/30/24 06:43
Hct 34.2 % (37.0-47.0) L 07/30/24 06:43
Plt Count 359 10^3/uL (130-400) 07/30/24 06:43
eGFR > 60.00 07/30/24 15:07
Albumin 4.0 g/dl (3.5-5.0) 07/29/24 20:11
Abnormal Lab Results
07/29/24 07/30/24 07/30/24
20:11 06:43 10:47
WBC 18.8 H 16.5 H
RBC 3.80 L 3.91 L
Hct 33.2 L 34.2 L
MCH 32.1 H
Abs Immat Gran (auto) 0.1 H
Absolute Neuts (auto) 14.8 H
Absolute Monos (auto) 1.9 H
Immature Gran % 0.7 H
Neutrophils % 78.8 H
Lymphocytes % 10.3 L
Monocytes % 10.0 H
Sodium 119 L* 126 L 127 L
Chloride 82 L 88 L 89 L
BUN 28 H 24 H 24 H
Glucose 144 H 159 H
Serum Osmolality 259 L
AST 54 H
ALT 36 H
C-Reactive Protein 34.80 H
Total Protein 6.2 L
Leukocyte Esterase Rfl 2+ A
Urine WBC (Reflex) 11-15 A
Urine Bacteria (Reflex) Moderate A
07/30/24
15:07
WBC
RBC
Hct
MCH
Abs Immat Gran (auto)
Absolute Neuts (auto)
Absolute Monos (auto)
Immature Gran %
Neutrophils %
Lymphocytes %
Monocytes %
Sodium 126 L
Chloride 91 L
BUN 29 H
Glucose 118 H
Serum Osmolality
AST
ALT
C-Reactive Protein
Total Protein
Leukocyte Esterase Rfl
Urine WBC (Reflex)
Urine Bacteria (Reflex)
Urine osmo was 590, urine sodium was [address] abd pelvis with IV:
IMPRESSION:
Cholelithiasis. No biliary tract dilatation.
Unremarkable appendix.
4 cm simple right renal cyst.
Extensive beam hardening artifact from extensive metal hardware throughout the lower thoracic and lumbar spine as well as right hip arthroplasty significantly limiting evaluation of the soft tissues of the abdomen and true pelvis. Lobulated contour
of the superior margin of the right kidney limited by beam hardening artifact, cannot exclude complex cyst or solid lesion.
No intestinal obstruction or free air.
L spine Xray:
IMPRESSION:
Extensive spinal orthopedic hardware.
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
Physical Exam
General: Awake, Alert, Oriented, AOx3 and No Distress
HEENT: EOMI, Anicteric, Ear/Nose Intact, Facial Symmetry and No JVD
Respiratory: Clear, Normal Excursion and Nonlabored Respirations
Cardiac: S1/S2 and Regular Rate/Rhythm
Breast: Deferred by me
Abdomen: Soft, Nontender and Nondistended
Musculoskeletal: No Cyanosis and No Edema
Skin: No Rash
Neuro: Nonfocal/Grossly Intact
Psych: Mood/afflect pleasant, Insight/judgement good and Appropriate
Data Reviewed
-
Radiology: Report Reviewed by me and Discussed with Family
Labs: Labs Reviewed by me and Discussed with Patient
Assessment/Plan
-
IMP:
Hyponatremia
Back pain - Lumbosacral pain with radiculopathy
HTN
Constipation
leukocytosis
elevated LFTs
OA
Fibromyalgia
Plan:
A/w back pain and noted hyponatremia 119
sodium improving with 3% saline
U osmo elevated at 592, U na low 30
High ADH state likely from acute on chr pain
NSAIDs likely did not help with free water excretion
will likely resume 3% saline today if sodium decreases further
goal of sodium 130s in am , likely samsca in am
maintain FR 48 ounces/day
BP stable with meds
pain control, avoid NSAIDs if possible
d/w pt in detail
d/w nursing
[2024-07-30] MEDS: CARDIZEM CD 360 MG PO (16:16)
[2024-07-30] MEDS: LIPITOR 40 MG PO (17:51)
[2024-07-30] MEDS: LOVENOX 40 MG SC (17:51)
[2024-07-30 19:18] LABS: Blood Urea Nitrogen 27 mg/dl (7-17); Calcium 9.2 mg/dl (8.4-10.2); Carbon Dioxide 27 mmol/L (22-30); Chloride 91 mmol/L (98-107); Estimated Creatinine Clearance 60 ml/min; Glucose 124 mg/dl (70-99); Potassium 3.9 mmol/L (3.5-5.1); Sodium 127 mmol/L (135-145); eGFR > 60.00
[2024-07-30] MEDS: SINGULAIR 10 MG PO (22:24)
[2024-07-30] MEDS: ELAVIL 20 MG PO (22:24)
[2024-07-30] MEDS: MIRALAX 8.5 GRAMS PO (22:27)
[2024-07-31 03:15] VITALS: BP 134/63
[2024-07-31 07:22] LABS: % Basophils 0.2 % (0-2); % Eosinophils 1.4 % (0-6); % Immature Granulocytes 0.9 % (0-0.5); % Lymphocytes 19.1 % (20.5-51.1); % Monocytes 9.5 % (1.7-9.3); % Neutrophils 68.9 % (42.2-75.2); Absolute Eosinophils 0.2 10^3/uL (0-0.7); Absolute Immature Granulocytes 0.1 10^3/uL (0-0.05); Absolute Lymphocytes 2.5 10^3/uL (1.2-3.4); Absolute Monocytes 1.3 10^3/uL (0.1-0.6); Absolute Neutrophils 9.2 10^3/uL (1.4-6.5); Hematocrit 31.7 % (37.0-47.0); Hemoglobin 11.3 g/dL (12.0-16.0); Mean Corp Hgb Conc. 35.6 g/dL (33.0-37.0); Mean Corpuscular Hgb 31.8 pg (27.0-31.0); Mean Corpuscular Volume 89.3 fL (81.0-99.0); Nucleated Red Blood Cells % 0 %; Platelet Count 337 10^3/uL (130-400); Red Blood Cell Count 3.55 10^6/uL (4.20-5.40); Red Cell Dist. Width 13.3 % (11.5-14.5); White Blood Cell Count 13.3 10^3/uL (4.8-10.8)
[2024-07-31 07:55] VITALS: BP 134/60
[2024-07-31 08:01] LABS: Blood Urea Nitrogen 37 mg/dl (7-17); Calcium 8.7 mg/dl (8.4-10.2); Carbon Dioxide 27 mmol/L (22-30); Chloride 94 mmol/L (98-107); Estimated Creatinine Clearance 46 ml/min; Glucose 96 mg/dl (70-99); Potassium 3.8 mmol/L (3.5-5.1); Sodium 129 mmol/L (135-145); eGFR > 60.00
[2024-07-31] MEDS: CELEBREX 200 MG PO (08:50)
[2024-07-31] MEDS: CARDIZEM CD 360 MG PO (08:50)
[2024-07-31] MEDS: PERCOCET 5/325 1 TABLET PO ×2 (08:50→12:53)
[2024-07-31] MEDS: PROTONIX 40 MG PO (08:50)
[2024-07-31] MEDS: ZESTRIL 40 MG PO (08:50)
[2024-07-31] MEDS: LOW STRENGTH ASPIRIN 81 MG PO (08:50)
[2024-07-31] MEDS: COLACE 100 MG PO ×2 (08:50→20:53)
[2024-07-31] MEDS: FLUSH (NSS) 1 FLUSH IV (08:51)
--- NOTE | 2024-07-31 10:07 | W.PN.HOSP.TC ---
Today's Communication/Plan
-
Pain control. PT OT eval.
Assessment / Plan
Assessment / Plan
Physical Exam
General: Acutely ill. Distress due to back pain.
HEENT: NormoCephalic, Anicteric, Moist mucous membranes and Atraumatic
Respiratory: Clear
Cardiac: S1/S2 and Regular Rhythm
Breast: Deferred by me
GI: Soft, Non Tender, Non Distended and Normal Bowel Sounds
Rectal: Deferred by Provider
Genito-urinary: Clear Urine and No costovertebral tender
Musculoskeletal: Tender lumbar area and decreased range of motion. No Clubbing, No Cyanosis and No Edema
Skin: Warm
Neuro: AO x 3, No Motor Deficits and Nonfocal/grossly intact
Hematologic/Lymphatic: No Lymphadenopathy
Psych: Calm
A/P:
Acute on chronic back pain:
Continue pain control but adjust medications today--> Tylenol scheduled, add Lidoderm patch, continue oxycodone and Dilaudid as needed.
X-rays and CT scan evidence of extensive metal hardware
Follows up with orthopedic as outpatient
PT OT--> recommend skilled rehab
Severe hyponatremia:
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
Urine osmolarity 592 and urine sodium 30
She was given 3% saline yesterday upon admission
Continue water restrictions less than 48 ounces a day
Avoid NSAIDs
Nephrology consult appreciated
Continue to monitor sodium in a.m.
Leukocytosis:
Likely reactive due to recent steroid
Trending down
Off antibiotic
WBC 18.8--> down to 13.3 today
Continue to monitor
Constipation:
Start scheduled bowel regimen
Hypertension:
Continue lisinopril 40 mg p.o. daily and diltiazem to 60 mg p.o. daily
Monitor blood pressure adjust medications accordingly
Hyperlipidemia:
Continue atorvastatin 40 mg nightly
DVT prophylaxis:
Lovenox SQ
CODE STATUS:
Full code
Anticipated Discharge: 24 - 48 hours
Subjective/Interval History
-
Date of Service: July 31, 2024
Patient feels better today. Still having back pain but more tolerable. Alert and oriented. Afebrile
Objective Data
-
Labs:
Laboratory Results
07/31/24
06:58
WBC 13.3 H
Hgb 11.3 L
Hct 31.7 L
Plt Count 337
Sodium 129 L
Potassium 3.8
Chloride 94 L
Carbon Dioxide 27
BUN 37 H
Creatinine 0.9
Glucose 96
Calcium 8.7
Vital Signs:
Vital Signs
Temp Pulse Resp BP Pulse Ox
98.0 F 93 16 134/60 97
07/31/24 07:55 07/31/24 08:50 07/31/24 07:55 07/31/24 08:50 07/31/24 07:55
I&O
07/30/24 07/31/24 08/01/24
06:59 06:59 06:59
Intake Total 720 / 720
Balance 720 / 720
--- NOTE | 2024-07-31 10:41 | CM ---
CM following re: d/c planning.
Pt from home, lives in [place] apt at [facility].
Per therapy, recs for SNF. Ref sent to [facility] for review.
CM continuing to follow medical course.
[2024-07-31 11:00] VITALS: BP 122/61
[2024-07-31] MEDS: LIDOCAINE 4% PATCH 1 PATCH TOPICAL (14:20)
--- NOTE | 2024-07-31 15:16 | W.PN.NEPH.PH ---
Today's Communication / Plan
-
samsca
Assessment/Plan
-
IMP:
Hyponatremia
Back pain - Lumbosacral pain with radiculopathy
HTN
Constipation
leukocytosis
elevated LFTs
OA
Fibromyalgia
Plan:
A/w back pain and noted hyponatremia 119
sodium improving with 3% saline
U osmo elevated at 592, U na low 30
High ADH state likely from acute on chr pain
NSAIDs likely did not help with free water excretion
sodium better at 129, will give low dose samsca
pt reports can not tolerate lasix or high dose of Indapamide
maintain FR 48 ounces/day
BP stable with meds
pain control, avoid NSAIDs if possible
d/w pt in detail
-
-
Date of Service: July 31, 2024
CC / HPI / ROS
-
Chief Complaint:
Hyponatremia
History of Present Illness:
sodium improved to 129, BP stable
no fever
Review of Systems:
pain better, had BMs
no n/v
no cp or sob
Labs
-
Labs:
WBC 13.3 10^3/uL (4.8-10.8) H 07/31/24 06:58
RBC 3.55 10^6/uL (4.20-5.40) L 07/31/24 06:58
Hgb 11.3 g/dL (12.0-16.0) L 07/31/24 06:58
Hct 31.7 % (37.0-47.0) L 07/31/24 06:58
Plt Count 337 10^3/uL (130-400) 07/31/24 06:58
Sodium 129 mmol/L (135-145) L 07/31/24 06:58
Potassium 3.8 mmol/L (3.5-5.1) 07/31/24 06:58
Chloride 94 mmol/L (98-107) L 07/31/24 06:58
Carbon Dioxide 27 mmol/L (22-30) 07/31/24 06:58
BUN 37 mg/dl (7-17) H 07/31/24 06:58
Creatinine 0.9 mg/dL (0.6-1.0) 07/31/24 06:58
eGFR > 60.00 07/31/24 06:58
Glucose 96 mg/dl (70-99) 07/31/24 06:58
Calcium 8.7 mg/dl (8.4-10.2) 07/31/24 06:58
Albumin 4.0 g/dl (3.5-5.0) 07/29/24 20:11
Physical Exam
-
Vital Signs:
Vital Signs
Temp Pulse Resp BP Pulse Ox
97.5 F 94 20 122/61 96
07/31/24 11:00 07/31/24 11:00 07/31/24 11:00 07/31/24 11:00 07/31/24 11:00
Cardiovascular:: Regular rate and rhythm
Respiratory:: Bilateral: CTA
Lung Excursion:: Normal
Abdomen:: Nontender and Soft
Extremity Edema:: None: Bilateral:
Clayton Catheter: No
[2024-07-31 15:30] VITALS: BP 122/57
[2024-07-31] MEDS: LOVENOX 40 MG SC (17:39)
[2024-07-31] MEDS: SAMSCA 7.5 MG PO (17:39)
[2024-07-31] MEDS: LIPITOR 40 MG PO (17:39)
[2024-07-31] MEDS: TYLENOL 1000 MG PO (17:39)
[2024-07-31 19:10] VITALS: BP 136/56
[2024-07-31] MEDS: SINGULAIR 10 MG PO (21:06)
[2024-07-31] MEDS: ELAVIL 20 MG PO (21:06)
[2024-07-31] MEDS: MIRALAX 8.5 GRAMS PO (21:07)
[2024-07-31] MEDS: ROXICODONE 10 MG PO (22:38)
[2024-07-31] MEDS: ZOFRAN 4 MG IV (22:41)
[2024-07-31 23:18] VITALS: BP 157/71
[2024-08-01 03:20] VITALS: BP 156/78
[2024-08-01] MEDS: TYLENOL PO (06:17)
[2024-08-01 07:03] VITALS: BP 129/73
[2024-08-01 08:15] LABS: Hemoglobin 12.4 g/dL (12.0-16.0); Mean Corp Hgb Conc. 35.4 g/dL (33.0-37.0); Mean Corpuscular Volume 90.2 fL (81.0-99.0); Platelet Count 379 10^3/uL (130-400); Red Blood Cell Count 3.88 10^6/uL (4.20-5.40); Red Cell Dist. Width 13.5 % (11.5-14.5); White Blood Cell Count 14.6 10^3/uL (4.8-10.8)
[2024-08-01 08:48] LABS: Blood Urea Nitrogen 30 mg/dl (7-17); Calcium 9.5 mg/dl (8.4-10.2); Carbon Dioxide 28 mmol/L (22-30); Chloride 95 mmol/L (98-107); Estimated Creatinine Clearance 69 ml/min; Glucose 110 mg/dl (70-99); Potassium 4.4 mmol/L (3.5-5.1); Sodium 133 mmol/L (135-145); eGFR > 60.00
[2024-08-01] MEDS: PROTONIX 40 MG PO (08:52)
[2024-08-01] MEDS: ROXICODONE 10 MG PO (08:52)
[2024-08-01] MEDS: ZESTRIL 40 MG PO (08:53)
[2024-08-01] MEDS: CARDIZEM CD 360 MG PO (08:53)
[2024-08-01] MEDS: LOW STRENGTH ASPIRIN 81 MG PO (08:53)
[2024-08-01] MEDS: LIDOCAINE 4% PATCH 1 PATCH TOPICAL (08:53)
[2024-08-01] MEDS: COLACE 100 MG PO ×2 (08:53→19:54)
[2024-08-01] MEDS: FLUSH (NSS) 1 FLUSH IV (08:54)
--- NOTE | 2024-08-01 11:03 | W.PN.NEPH.PH ---
Today's Communication / Plan
-
Follow BMP
Maintain fluid restriction
Assessment/Plan
-
IMP:
Hyponatremia
Back pain - Lumbosacral pain with radiculopathy
HTN
Constipation
leukocytosis
elevated LFTs
OA
Fibromyalgia
Plan:
A/w back pain and noted hyponatremia 119
sodium improving with 3% saline now up to 133
Received Samsca yesterday
U osmo elevated at 592, U na low 30
High ADH state likely from acute on chronic pain
NSAIDs likely did not help with free water excretion
pt reports can not tolerate lasix or high dose of Indapamide
maintain FR 48 ounces/day
BP stable with meds
pain control, avoid NSAIDs if possible
d/w pt in detail
-
-
Date of Service: August 01, 2024
CC / HPI / ROS
-
Chief Complaint:
Hyponatremia
History of Present Illness:
sodium improved to 1, BP stable
no fever
Review of Systems:
pain better, had BMs
no n/v
no cp or sob
Labs
-
Labs:
WBC 14.6 10^3/uL (4.8-10.8) H 08/01/24 07:56
RBC 3.88 10^6/uL (4.20-5.40) L 08/01/24 07:56
Hgb 12.4 g/dL (12.0-16.0) 08/01/24 07:56
Hct 35.0 % (37.0-47.0) L 08/01/24 07:56
Plt Count 379 10^3/uL (130-400) 08/01/24 07:56
Sodium 133 mmol/L (135-145) L 08/01/24 07:56
Potassium 4.4 mmol/L (3.5-5.1) 08/01/24 07:56
Chloride 95 mmol/L (98-107) L 08/01/24 07:56
Carbon Dioxide 28 mmol/L (22-30) 12 07:56
BUN 30 mg/dl (7-17) H 08/01/24 07:56
Creatinine 0.6 mg/dL (0.6-1.0) 08/01/24 07:56
eGFR > 60.00 08/01/24 07:56
Glucose 110 mg/dl (70-99) H 08/01/24 07:56
Calcium 9.5 mg/dl (8.4-10.2) 08/01/24 07:56
Albumin 4.0 g/dl (3.5-5.0) 07/29/24 20:11
Physical Exam
-
Vital Signs:
Vital Signs
Temp Pulse Resp BP Pulse Ox
97.7 F 86 18 129/73 100
08/01/24 07:03 08/01/24 08:53 08/01/24 07:03 08/01/24 08:53 08/01/24 08:46
Cardiovascular:: Regular rate and rhythm
Respiratory:: Bilateral: CTA
Lung Excursion:: Normal
Abdomen:: Nontender and Soft
Extremity Edema:: None: Bilateral:
Clayton Catheter: No
[2024-08-01 11:46] VITALS: BP 116/64
--- NOTE | 2024-08-01 13:47 | W.PN.HOSP.TC ---
Today's Communication/Plan
-
decrease dose of oxycodone
ortho consult
recheck BMP
Assessment / Plan
Assessment / Plan
Acute on chronic back pain:
Pt states last dose of oxycodone made her very 'wifty'
Continue pain control but adjust medications today--> Tylenol scheduled, add Lidoderm patch, continue oxycodone, but decrease dose , and will stop Dilaudid
X-rays and CT scan evidence of extensive metal hardware
Had appt with orthopedic as outpatient tomorrow as she states she just cancelled will contact and see if she can be seen by them while in the hosp[ital
PT OT--> recommend skilled rehab
Severe hyponatremia:
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
Urine osmolarity 592 and urine sodium 30
She was given 3% upon admission
Continue water restrictions less than 48 ounces a day
Avoid NSAIDs
Nephrology consult appreciated
Continue to monitor sodium in a.m.
119-->126-->129-->133
Leukocytosis:
Likely reactive due to recent steroid
Trending down
Off antibiotic
WBC 18.8--> down to 13.3 today
Continue to monitor
Constipation:
Start scheduled bowel regimen
Hypertension:
Continue lisinopril 40 mg p.o. daily and diltiazem to 60 mg p.o. daily
Monitor blood pressure adjust medications accordingly
Hyperlipidemia:
Continue atorvastatin 40 mg nightly
DVT prophylaxis:
Lovenox SQ
CODE STATUS:
Full code
Anticipated Discharge: > 48 hours
Subjective/Interval History
-
Date of Service: August 01, 2024
Still with significant back pain
Objective Data
-
Labs:
Laboratory Results
08/01/24
07:56
WBC 14.6 H
Hgb 12.4
Hct 35.0 L
Plt Count 379
Sodium 133 L
Potassium 4.4
Chloride 95 L
Carbon Dioxide 28
BUN 30 H
Creatinine 0.6
Glucose 110 H
Calcium 9.5
Vital Signs:
Vital Signs
Temp Pulse Resp BP Pulse Ox
98.2 F 82 18 116/64 96
08/01/24 11:46 08/01/24 11:46 08/01/24 11:46 08/01/24 11:46 08/01/24 11:46
I&O
07/31/24 08/01/24 08/02/24
06:59 06:59 06:59
Intake Total 720 / 720 1080 / 1080
Balance 720 / 720 1080 / 1080
Review of Systems
-
History Source: Patient and Coordinated Provider
Constitutional: Denies Fever
EENT: Reports No Symptoms Reported
Respiratory: Reports Cough; Denies Trouble Breathing (hx of asthma)
Cardiac: Reports No Symptoms; Denies Chest Pain
Abdomen/GI: Reports No Symptoms
Musculoskeletal: Reports Joint Pain (back pain)
Physical Exam
-
General: Well Developed, Well Nourished and No Apparent Distress
HEENT: Normocephalic, Atraumatic and Moist Mucous Membranes
Respiratory: Rhonchi (scattered rhonchi rt base)
Cardiac: Regular Rhythm and S1/S2
GI: Nontender and Nondistended
Musculoskeletal: No Clubbing, No Cyanosis and No Edema
[2024-08-01 15:14] VITALS: BP 136/58
[2024-08-01] MEDS: TYLENOL 1000 MG PO (16:05)
--- NOTE | 2024-08-01 16:08 | PTCARENOTE ---
Pt AAO x3, [place]; OOB in chair for most of shift; ambulates to BR/In npaoles with walker, assist x1, trevor well. VSS. On room air- puls eox 96%, no SOB noted. Abd large, soft, trevor PO well. Voids in BR without difficulty. Resting comfortably at
present. Will continue to monitor.
--- NOTE | 2024-08-01 16:47 | W.PN.UPDATE ---
Documented by User: Derek Hollingsworth PA-C 08/01/24 21:42
Update Note
Progress Note Update
Full orthopedic consult dictated:
Dx: Lumbar radiculopathy (history fusion T3 to sacrum and cervical spine fusion)
Plan: Discussed with Dr Saldana and Dr Chen. CT scan should be completed tomorrow then follow-up with one of our rheumatology specialist later this week in office to review.

Documented by User: Linh Holbrook DO 08/09/24 09:44
Update Note
Progress Note Update
Full orthopedic consult dictated:
Dx: Lumbar radiculopathy (history fusion T3 to sacrum and cervical spine fusion)
Plan: Discussed with Dr Saldana and Dr Chen. CT scan should be completed tomorrow then follow-up with one of our rheumatology specialist later this week in office to review.
Patient was seen by our physician car rental sales assistant in order to obtain the above CT scan order. But was under the direction of our spine team.
[2024-08-01] MEDS: LOVENOX 40 MG SC (18:43)
[2024-08-01] MEDS: LIPITOR 40 MG PO (18:43)
[2024-08-01] MEDS: ROXICODONE 5 MG PO (21:38)
[2024-08-01] MEDS: ELAVIL 20 MG PO (21:38)
[2024-08-01] MEDS: SINGULAIR 10 MG PO (21:38)
[2024-08-01] MEDS: MIRALAX 8.5 GRAMS PO (21:39)
[2024-08-01 23:47] VITALS: BP 141/76
[2024-08-02] MEDS: TYLENOL 1000 MG PO ×2 (04:07→17:10)
[2024-08-02 07:25] VITALS: BP 149/78
[2024-08-02 07:25] LABS: Blood Urea Nitrogen 30 mg/dl (7-17); Calcium 8.9 mg/dl (8.4-10.2); Carbon Dioxide 28 mmol/L (22-30); Chloride 98 mmol/L (98-107); Estimated Creatinine Clearance 69 ml/min; Glucose 99 mg/dl (70-99); Potassium 4.4 mmol/L (3.5-5.1); Sodium 134 mmol/L (135-145); eGFR > 60.00
[2024-08-02] MEDS: ROXICODONE 5 MG PO ×4 (08:19→21:41)
[2024-08-02] MEDS: CARDIZEM CD 360 MG PO (08:22)
[2024-08-02] MEDS: PROTONIX 40 MG PO (08:23)
[2024-08-02] MEDS: LOW STRENGTH ASPIRIN 81 MG PO (08:23)
[2024-08-02] MEDS: LIDOCAINE 4% PATCH 1 PATCH TOPICAL (08:23)
[2024-08-02] MEDS: COLACE 100 MG PO ×2 (08:23→19:54)
[2024-08-02] MEDS: ZESTRIL 40 MG PO (08:23)
[2024-08-02] MEDS: FLUSH (NSS) 1 FLUSH IV (08:24)
[2024-08-02 12:45] VITALS: BP 134/76; PULSE 94; O2SAT 95
[2024-08-02 12:53] VITALS: BP 134/76; PULSE 94; O2SAT 95
[2024-08-02 15:36] VITALS: BP 134/68
[2024-08-02] MEDS: LOVENOX 40 MG SC (17:10)
[2024-08-02] MEDS: LIPITOR 40 MG PO (17:10)
--- NOTE | 2024-08-02 18:34 | W.PN.HOSP.TC ---
Today's Communication/Plan
-
recheck labs in AM
Assessment / Plan
Assessment / Plan
Acute on chronic back pain:
Pt states last dose of oxycodone made her very 'wifty'
Continue pain control but adjust medications today--> Tylenol scheduled, add Lidoderm patch, continue oxycodone, but decrease dose , and will stop Dilaudid
X-rays and CT scan evidence of extensive metal hardware
Had appt with orthopedic as outpatient tomorrow as she states she just cancelled will contact and see if she can be seen by them while in the hosp[ital
PT OT--> recommend skilled rehab
call placed and discussed with Matthew myers
Severe hyponatremia:
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
Urine osmolarity 592 and urine sodium 30
She was given 3% upon admission
Continue water restrictions less than 48 ounces a day
Avoid NSAIDs
Nephrology consult appreciated
Continue to monitor sodium in a.m.
119-->126-->129-->133-->134
Leukocytosis:
Likely reactive due to recent steroid
Trending down
Off antibiotic
WBC 18.8-->16.5-->13.3-->14.6
Continue to monitor original thought was related to steroids, but has been off steroids and has persisted. No fever. If continues to stay elevated consider ID consult
Chest congestion
CXR: Bibasilar probable atelectasis/scarring, slightly progressed. No convincing acute focal infiltrates.
Constipation:
Start scheduled bowel regimen
Hypertension:
Continue lisinopril 40 mg p.o. daily and diltiazem to 360 mg p.o. daily
Monitor blood pressure adjust medications accordingly
Hyperlipidemia:
Continue atorvastatin 40 mg nightly
DVT prophylaxis:
Lovenox SQ
CODE STATUS:
Full code
Pt requested I call and update sonCristian 08/02
Consideration for DC to SNF next 1-2 days depending on WBC
Anticipated Discharge: 24 - 48 hours
Subjective/Interval History
-
Date of Service: August 02, 2024
Chronic Back Pain
Objective Data
-
Labs:
Laboratory Results
08/02/24
06:13
Sodium 134 L
Potassium 4.4
Chloride 98
Carbon Dioxide 28
BUN 30 H
Creatinine 0.6
Glucose 99
Calcium 8.9
Vital Signs:
Vital Signs
Temp Pulse Resp BP Pulse Ox
97.8 F 82 18 134/68 98
08/02/24 15:36 08/02/24 15:36 08/02/24 15:36 08/02/24 15:36 08/02/24 15:36
I&O
08/01/24 08/02/24 08/03/24
06:59 06:59 06:59
Intake Total 1080 / 1080 1020 / 1020 1320 / 1320
Balance 1080 / 1080 1020 / 1020 1320 / 1320
Review of Systems
-
History Source: Patient and Coordinated Provider
Constitutional: Denies Fever
EENT: Reports No Symptoms Reported
Respiratory: Reports Cough; Denies Trouble Breathing (hx of asthma)
Cardiac: Reports No Symptoms; Denies Chest Pain
Abdomen/GI: Reports No Symptoms
Musculoskeletal: Reports Joint Pain (back pain)
Physical Exam
-
General: Well Developed, Well Nourished and No Apparent Distress
HEENT: Normocephalic, Atraumatic and Moist Mucous Membranes
Respiratory: Rhonchi (scattered rhonchi rt base)
Cardiac: Regular Rhythm and S1/S2
GI: Nontender and Nondistended
Musculoskeletal: No Clubbing, No Cyanosis and No Edema
[2024-08-02] MEDS: MIRALAX 8.5 GRAMS PO (19:54)
[2024-08-02] MEDS: ELAVIL 20 MG PO (19:57)
[2024-08-02] MEDS: SINGULAIR 10 MG PO (19:57)
[2024-08-02 20:51] LABS: Urine Albumin Negative (Neg - Trace); Urine Bilirubin Negative (Negative); Urine Character Clear (Clear); Urine Color Yellow; Urine Glucose Negative (Negative); Urine Ketone Negative (Negative); Urine Leukocyte Trace (Negative); Urine Nitrite Negative (Negative); Urine Occult Blood Negative (Negative); Urine Urobilinogen Negative (Neg - 1+)
--- NOTE | 2024-08-02 20:51 | W.PN.UPDATE ---
Update Note
Progress Note Update
CT scan findings reviewed with Dr Saldana and Dr Chen. Two areas of concern on this study with first for lucency L2-3 level posterior aspect raising question for possible fracture and second for right pedicle screw at T11 which encroaches close to
spinal cord and nerve roots. Suggest patient be evaluated by spine or neurosurgery for their thoughts and recommendations.
CT scan lumbosacral spine August 02, 2024
1. Extensive surgical hardware with significant streak artifact, limiting evaluation
2. No evidence for compression fracture.
3. No findings that would suggest discitis or osteomyelitis. No evidence for paraspinal collection. There is no evidence for displacement of bony intervertebral disc spacers.
4. Transverse lucency through the posterior elements at the L2-3 level, could possibly represent a fracture of the posterior elements, but stable from examination of 3 days earlier. This could represent a chronic lucency through the posterior
elements.
5. Right pedicle screw at T11 appears to extend into the right lateral aspect of the spinal canal, and could possibly contact the right lateral aspect of the spinal cord and/or nerve roots
[2024-08-02 21:54] LABS: Urine Bacteria Few (Negative); Urine Red Blood Cell 0-2 /HPF (0-2); Urine Squamous Cell >30 /LPF (Few)
[2024-08-02 23:55] VITALS: BP 132/79
[2024-08-03] MEDS: TYLENOL 1000 MG PO ×2 (04:36→16:09)
[2024-08-03 07:18] VITALS: BP 146/78
[2024-08-03 07:21] VITALS: BP 156/82
[2024-08-03 07:24] LABS: % Basophils 0.2 % (0-2); % Eosinophils 1.6 % (0-6); % Immature Granulocytes 0.7 % (0-0.5); % Lymphocytes 10.1 % (20.5-51.1); % Monocytes 6.3 % (1.7-9.3); % Neutrophils 81.1 % (42.2-75.2); Absolute Eosinophils 0.3 10^3/uL (0-0.7); Absolute Immature Granulocytes 0.1 10^3/uL (0-0.05); Absolute Lymphocytes 1.7 10^3/uL (1.2-3.4); Absolute Neutrophils 13.2 10^3/uL (1.4-6.5); Hematocrit 31.4 % (37.0-47.0); Hemoglobin 10.9 g/dL (12.0-16.0); Mean Corp Hgb Conc. 34.7 g/dL (33.0-37.0); Mean Corpuscular Hgb 31.6 pg (27.0-31.0); Mean Platelet Volume 7.8 fL (7.4-10.4); Nucleated Red Blood Cells % 0 %; Platelet Count 314 10^3/uL (130-400); Red Blood Cell Count 3.45 10^6/uL (4.20-5.40); Red Cell Dist. Width 13.7 % (11.5-14.5); White Blood Cell Count 16.3 10^3/uL (4.8-10.8)
[2024-08-03 07:36] LABS: Glucose - Point of Care 104 mg/dl (70-99)
[2024-08-03 07:50] LABS: Blood Urea Nitrogen 21 mg/dl (7-17); Carbon Dioxide 27 mmol/L (22-30); Chloride 98 mmol/L (98-107); Estimated Creatinine Clearance 69 ml/min; Glucose 92 mg/dl (70-99); Potassium 4.6 mmol/L (3.5-5.1); Sodium 131 mmol/L (135-145); eGFR > 60.00
[2024-08-03] MEDS: LIDOCAINE 4% PATCH 1 PATCH TOPICAL (09:07)
[2024-08-03] MEDS: PROTONIX 40 MG PO (09:08)
[2024-08-03] MEDS: ZESTRIL 40 MG PO (09:08)
[2024-08-03] MEDS: CARDIZEM CD 360 MG PO (09:08)
[2024-08-03] MEDS: LOW STRENGTH ASPIRIN 81 MG PO (09:08)
[2024-08-03] MEDS: COLACE 100 MG PO ×2 (09:09→21:45)
[2024-08-03] MEDS: ROXICODONE 5 MG PO ×3 (09:09→23:00)
[2024-08-03] MEDS: ZOFRAN 4 MG IV ×3 (09:52→23:01)
--- NOTE | 2024-08-03 12:11 | CON.NS ---
Consultation
-
Date/Time Consultation Performed: 08/03/2024; 12:30
Performing Provider: Fanta
Chief Complaint
History of Present Illness
This is a neurosurgical consultation on a 74-year-old female with a complicated spinal surgical history, with radiologic evidence of multiple cervical, and thoracolumbar fusions who presented to the emergency room with hyponatremia. She reported
acute on chronic back pain. Patient is followed by orthopedic physician, who placed her on a prednisone taper. She reports severe pain of the back, with shooting down the legs bilaterally. She denies any numbness or tingling, she denies any
weakness. Pain is reported to be worse with getting up and ambulating. She denies any fevers or chills. Patient had a CT of the abdomen/pelvis which demonstrated constipation, mild that reticulitis, and extensive fusion.Patient was managed and
treated for hyponatremia. Chronic pain is being managed with Tylenol, oxycodone. Given CT findings of extensive lumbar fusion, with question of lucency at the L2-3 level, and right pedicle screw at T11, orthopedic advised evaluation by
spine/neurosurgery.
Patient seen and examined. She reports that she had T3 to ilium [place] [address] Wright in [place], and then subsequent cervical fusion in 2016. She reports that she has not seen this surgeon recently, over the last several years. She
reports that at his last visit, she was told that everything was healing well. She reports that the back pain started just before Thanksgiving. She denies any inciting trauma. She reports the pain radiates from the back down the right leg ending
at the level of the knee. She reports altered sensation in the right proximal thigh, but denies any weakness. She denies any bowel or bladder changes.
Review of Systems
-
A 10 point review of systems including constitutional, ENT, cardiovascular, respiratory, GI, , endocrinologic, hematologic, psychiatric, neurologic, musculoskeletal was performed, it was negative, except for stated in HPI.
Medication and Allergies
Home Medications
Home Medications
�Medication �Instructions �Recorded
Parafon Forte: 500 mg PO PRN PRN pain 12/04/10
jpytdqvtjr-aqeiseqekyuir-btwfrknv 2 ea PO PRN PRN pain 12/04/10
50 mg-325 mg-40 mg tablet
celecoxib 200 mg capsule (Celebrex) 200 mg PO DAILY 12/04/10
cholecalciferol (vitamin D3) 50 2,000 unit PO DAILY 12/04/10
mcg (2,000 unit) capsule (Vitamin
D3)
docusate sodium 100 mg capsule 1 cap PO BID 12/04/10
fluticasone propionate 50 2 spray intranasal HS 12/04/10
mcg/actuation nasal
spray,suspension
montelukast 10 mg tablet 10 mg PO HS 12/04/10
(Singulair)
kfvlxmmj-sbu-LW 0.4 mg-calcium 162 1 ea PO DAILY 12/04/10
mg-iron 18 vy-rrgkdxd-psiiyr tablet
pantoprazole 40 mg tablet,delayed 40 mg PO DAILY 12/04/10
release
amitriptyline 10 mg tablet 20 mg PO HS 12/30/10
aspirin 81 mg chewable tablet 81 mg PO QPM 12/30/10
guaifenesin 600 mg tablet,extended 600 mg PO BID 12/30/10
release
polyethylene glycol 3350 17 gram 8.5 grams PO HS 12/30/10
oral powder packet
quinapril 20 mg tablet 40 mg PO DAILY 12/30/10
atorvastatin 40 mg tablet 40 mg PO QPM 01/19/17
Lactobacillus acidophilus 1 cap PO DAILY 02/08/21
(Acidophilus capsule)
Pro-Air Inhaler 2 puff inhalation PRN PRN allergies 02/08/21
Tylenol Extra Strength 1,000 mg PO PRN PRN pain 02/08/21
fluticasone propionate 50 1 spray intranasal PRN PRN 02/08/21
mcg/actuation nasal ALLERGIES
spray,suspension
indapamide 1.25 mg tablet 1.25 mg PO DAILY 02/08/21
Ruba 1 PO QPM 07/30/24
diltiazem HCl 360 mg capsule,24 360 mg PO DAILY 07/30/24
hr,extended release
Allergies
Allergies
Allergy/AdvReac Type Severity Reaction Status Date / Time
hydrochlorothiazide Allergy Mild Rash Verified 07/29/24 20:06
codeine AdvReac Mild nausea Verified 07/29/24 20:06
erythromycin base AdvReac Mild nausea Verified 07/29/24 20:06
Physical Exam
-
Exam:
Awake, alert, no distress.
Cranial nerves II through gross intact.
Motor: 5/5 bilaterally in upper extremities lower extremities.
Sensation: Diminished sensation to light touch over right proximal thigh.
Head is normocephalic atraumatic
Neck is supple
Abdomen is soft
Breathing nonlabored
Cardiac regular rate
Extremities warm
Noncontrast CT of the lumbar spine performed on 08/02/2024 was reviewed. There is extensive hardware and interbody cage placement extending from at least T10 down to ilium. Multiple interbody cages are also placed at L5-S1, L4-L5, L3 L2, L2 L1.
There is evidence of discontinuity of the left L2-3 kayla that is noted which may be secondary to fracture. Difficult to rule out pseudoarthrosis. However there is evidence of extensive bony fusion across this level as well. There is also note made
of the right T11 pedicle screw that appears to extend along the right lateral aspect of the spinal canal. On coronal views, there does appear to be a fracture line across the L2-L3 level. No obvious evidence of displacement/listhesis is noted.
Problems
-
Problem Status Onset Code
Acute bilateral low back pain M54.50
Assessment / Plan
-
This is a 74-year-old female with an extensive, complicated spinal surgical history, presents with hyponatremia which is the admitting diagnosis. She also has acute on chronic back pain.
It is difficult to ascertain whether or not this L2 fracture/discontinuity of the hardware at L2-L3 is chronic versus acute. Spinal alignment appears to be maintained with no evidence of listhesis at this level. There is also extensive bony fusion
that is noted, and there is an interbody cage that is also noted at L2-L3 without any evidence of lucency or subsidence to suggest pseudoarthrosis anteriorly. Additionally, fracture kayla appears to be on the left side, and patient has symptoms on
the right.
Suggest TLSO brace when patient is ambulatory and weightbearing.
No urgent neurosurgical intervention is recommended at the present time. Patient should follow-up with primary spinal surgeon for further evaluation.
Continue with pain control.
--- NOTE | 2024-08-03 13:07 | W.PN.NEPH.PH ---
Today's Communication / Plan
-
samsca
Assessment/Plan
-
IMP:
Hyponatremia
Back pain - Lumbosacral pain with radiculopathy
HTN
Constipation
leukocytosis
elevated LFTs
OA
Fibromyalgia
Plan:
low dose samsca today
follow BMP
dc planning
cannot use lasix (intolerance)
avoid just NaCl with HTN
could consider urea in future
-
-
Date of Service: August 03, 2024
CC / HPI / ROS
-
Chief Complaint:
Hyponatremia
History of Present Illness:
sodium stable at 131
BP stable
no fever
Review of Systems:
pain better
nausea
no cp or sob
Labs
-
Labs:
WBC 16.3 10^3/uL (4.8-10.8) H 08/03/24 07:12
RBC 3.45 10^6/uL (4.20-5.40) L 08/03/24 07:12
Hgb 10.9 g/dL (12.0-16.0) L 08/03/24 07:12
Hct 31.4 % (37.0-47.0) L 08/03/24 07:12
Plt Count 314 10^3/uL (130-400) 08/03/24 07:12
Sodium 131 mmol/L (135-145) L 08/03/24 07:12
Potassium 4.6 mmol/L (3.5-5.1) 08/03/24 07:12
Chloride 98 mmol/L (98-107) 08/03/24 07:12
Carbon Dioxide 27 mmol/L (22-30) 08/03/24 07:12
BUN 21 mg/dl (7-17) H 08/03/24 07:12
Creatinine 0.5 mg/dL (0.6-1.0) L 08/03/24 07:12
eGFR > 60.00 08/03/24 07:12
Glucose 92 mg/dl (70-99) 08/03/24 07:12
Calcium 9.0 mg/dl (8.4-10.2) 08/03/24 07:12
Albumin 4.0 g/dl (3.5-5.0) 07/29/24 20:11
Physical Exam
-
Vital Signs:
Vital Signs
Temp Pulse Resp BP Pulse Ox
98.8 F 93 18 156/82 97
08/03/24 07:21 08/03/24 09:08 08/03/24 07:21 08/03/24 09:08 08/03/24 09:20
Cardiovascular:: Regular rate and rhythm
Respiratory:: Bilateral: Coarse
Lung Excursion:: Normal
Abdomen:: Nontender and Soft
Bowel Sounds:: Normal
Extremity Edema:: None: Bilateral:
[2024-08-03] MEDS: SAMSCA 7.5 MG PO (14:20)
[2024-08-03 15:23] VITALS: BP 132/66
--- NOTE | 2024-08-03 16:58 | W.PN.HOSP.TC ---
Today's Communication/Plan
-
Back Brace
recheck BMP, CBC in AM
will need follow up with Dr. Wright at [facility]
Assessment / Plan
Assessment / Plan
Acute on chronic back pain:
Pt states last dose of oxycodone made her very 'wifty'
Continue pain control but adjust medications today--> Tylenol scheduled, add Lidoderm patch, continue oxycodone, but decrease dose , and will stop Dilaudid
X-rays and CT scan evidence of extensive metal hardware
Had appt with orthopedic as outpatient tomorrow as she states she just cancelled will contact and see if she can be seen by them while in the hospital
PT OT--> recommend skilled rehab
call placed and discussed with ortho, Matthew Hollingsworth. Following review of CT scan, recommend eval by neurosurg. Rec brace, has been ordered
Severe hyponatremia:
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
Urine osmolarity 592 and urine sodium 30
She was given 3% upon admission
Continue water restrictions less than 48 ounces a day
Avoid NSAIDs
Nephrology consult appreciated
Continue to monitor sodium in a.m.
119-->126-->129-->133-->134-->131
Leukocytosis:
Likely reactive due to recent steroid
Trending down
Off antibiotic
WBC 18.8-->16.5-->13.3-->14.6-->16.3
Continue to monitor original thought was related to steroids, but has been off steroids and has persisted. No fever. If continues to stay elevated consider ID consult
CT scan: Extensive surgical hardware with significant streak artifact, limiting evaluation.
No evidence for compression fracture.
No findings that would suggest discitis or osteomyelitis. No evidence for paraspinal collection. There is no evidence for displacement of bony intervertebral disc spacers.
Discontinuity of left vertical kayla at the L2-3 level, stable from examinations of July 30, 2024. See above discussion.
Transverse lucency through the posterior elements at the L2-3 level, could possibly represent a fracture of the posterior elements, but stable from examination of 3 days earlier. This could represent a chronic lucency through the posterior elements.
The right pedicle screw at T11 appears to extend into the right lateral aspect of the spinal canal, and could possibly contact the right lateral aspect of the spinal cord and/or nerve roots.
Likely trace bilateral pleural effusions.
Chest congestion
CXR: Bibasilar probable atelectasis/scarring, slightly progressed. No convincing acute focal infiltrates.
Constipation:
Start scheduled bowel regimen
did have BM today
Hypertension:
Continue lisinopril 40 mg p.o. daily and diltiazem to 360 mg p.o. daily
Monitor blood pressure adjust medications accordingly
Hyperlipidemia:
Continue atorvastatin 40 mg nightly
DVT prophylaxis:
Lovenox SQ
CODE STATUS:
Full code
Pt requested I call and update sonCristian 08/03
Consideration for DC to SNF next 1-2 days depending on WBC
Anticipated Discharge: 24 - 48 hours
Subjective/Interval History
-
Date of Service: August 03, 2024
In good spirits, appreciates input from Neurosurg
Objective Data
-
Labs:
Laboratory Results
08/03/24
07:12
WBC 16.3 H
Hgb 10.9 L
Hct 31.4 L
Plt Count 314
Sodium 131 L
Potassium 4.6
Chloride 98
Carbon Dioxide 27
BUN 21 H
Creatinine 0.5 L
Glucose 92
Calcium 9.0
Vital Signs:
Vital Signs
Temp Pulse Resp BP Pulse Ox
98.2 F 110 18 132/66 95
08/03/24 15:23 08/03/24 15:23 08/03/24 15:23 08/03/24 15:23 08/03/24 15:23
I&O
08/02/24 08/03/24 08/04/24
06:59 06:59 06:59
Intake Total 1020 / 1020 1560 / 1560
Balance 1020 / 1020 1560 / 1560
Review of Systems
-
History Source: Patient and Coordinated Provider
Constitutional: Denies Fever
EENT: Reports No Symptoms Reported
Respiratory: Reports Cough; Denies Trouble Breathing (hx of asthma)
Cardiac: Reports No Symptoms; Denies Chest Pain
Abdomen/GI: Reports No Symptoms
Musculoskeletal: Reports Joint Pain (back pain)
Physical Exam
-
General: Well Developed, Well Nourished and No Apparent Distress
HEENT: Normocephalic, Atraumatic and Moist Mucous Membranes
Respiratory: Rhonchi (scattered rhonchi rt base, improves with deep inspirations)
Cardiac: Regular Rhythm and S1/S2
GI: Nontender and Nondistended
Musculoskeletal: No Clubbing, No Cyanosis and No Edema
--- NOTE | 2024-08-03 16:59 | CM ---
PT indicates SN[place].
Referral for [facility] in care [facility].
[facility] said to call [facility] [place] to check for bed.
Cristian son said he can drive pt to SNF [place].
[facility]
report [phone]
fax [phone]
[facility] [place]
[2024-08-03] MEDS: LOVENOX 40 MG SC (17:42)
[2024-08-03] MEDS: LIPITOR 40 MG PO (17:42)
[2024-08-03] MEDS: ELAVIL 20 MG PO (21:45)
[2024-08-03] MEDS: MIRALAX 8.5 GRAMS PO (21:46)
[2024-08-03] MEDS: SINGULAIR 10 MG PO (21:48)
[2024-08-03 23:25] VITALS: BP 108/57
[2024-08-04] MEDS: TYLENOL 1000 MG PO ×2 (05:24→17:12)
--- NOTE | 2024-08-04 06:34 | DOWNTIME ---
There was a [employer] Downtime on 08/04/2024 from 0200 to 08/04/2024 at 0325 . Downtime documentation of patient's care, including medication administrations, has been reconciled in the electronic record per guidelines. Refer to the
patient's paper chart under the miscellaneous tab to see printed paper medication records and downtime forms.
[2024-08-04 07:28] LABS: % Basophils 0.2 % (0-2); % Eosinophils 0.3 % (0-6); % Immature Granulocytes 0.6 % (0-0.5); % Lymphocytes 5.5 % (20.5-51.1); % Monocytes 3.9 % (1.7-9.3); % Neutrophils 89.5 % (42.2-75.2); Absolute Eosinophils 0.1 10^3/uL (0-0.7); Absolute Immature Granulocytes 0.1 10^3/uL (0-0.05); Absolute Monocytes 0.7 10^3/uL (0.1-0.6); Absolute Neutrophils 16.3 10^3/uL (1.4-6.5); Hematocrit 30.5 % (37.0-47.0); Hemoglobin 10.7 g/dL (12.0-16.0); Mean Corp Hgb Conc. 35.1 g/dL (33.0-37.0); Mean Corpuscular Hgb 31.9 pg (27.0-31.0); Mean Platelet Volume 8.5 fL (7.4-10.4); Nucleated Red Blood Cells % 0 %; Platelet Count 329 10^3/uL (130-400); Red Blood Cell Count 3.35 10^6/uL (4.20-5.40); White Blood Cell Count 18.2 10^3/uL (4.8-10.8)
[2024-08-04 07:49] LABS: Blood Urea Nitrogen 32 mg/dl (7-17); Calcium 8.5 mg/dl (8.4-10.2); Carbon Dioxide 26 mmol/L (22-30); Chloride 97 mmol/L (98-107); Estimated Creatinine Clearance 69 ml/min; Glucose 88 mg/dl (70-99); Potassium 4.3 mmol/L (3.5-5.1); Sodium 132 mmol/L (135-145); eGFR > 60.00
[2024-08-04 08:04] VITALS: BP 130/69
--- NOTE | 2024-08-04 08:17 | W.PN.UPDATE ---
Update Note
Progress Note Update
Contacted Cristian Garcia patient's son and relayed CT scan findings along with recommendations for lumbar brace and follow-up with her spine surgeon. Currently her son is in contact with Dr. Wright's office and trying to coordinate an appointment
for her to be evaluated by him.
[2024-08-04] MEDS: ZOFRAN 4 MG IV (09:13)
[2024-08-04] MEDS: LOW STRENGTH ASPIRIN 81 MG PO (09:13)
[2024-08-04] MEDS: ROXICODONE 5 MG PO ×3 (09:13→22:27)
[2024-08-04] MEDS: COLACE 100 MG PO ×2 (09:14→21:35)
[2024-08-04] MEDS: PROTONIX 40 MG PO (09:14)
[2024-08-04] MEDS: LIDOCAINE 4% PATCH 1 PATCH TOPICAL (09:14)
[2024-08-04] MEDS: ZESTRIL 40 MG PO (09:14)
[2024-08-04] MEDS: CARDIZEM CD 360 MG PO (09:14)
--- NOTE | 2024-08-04 13:12 | W.PN.NEPH.PH ---
Today's Communication / Plan
-
Follow BMP
Assessment/Plan
-
IMP:
Hyponatremia
Back pain - Lumbosacral pain with radiculopathy
HTN
Constipation
leukocytosis
elevated LFTs
OA
Fibromyalgia
Plan:
low dose samsca 08/03
follow BMP
dc planning
cannot use lasix (intolerance)
avoid just NaCl with HTN
could consider urea in future if sodium falls
Could also use Samsca as needed as an outpatient though coverage may be an issue
-
-
Date of Service: August 04, 2024
CC / HPI / ROS
-
Chief Complaint:
Hyponatremia
History of Present Illness:
sodium stable at 132 status post Samsca yesterday
BP stable
no fever
Review of Systems:
pain better
nausea
no cp or sob
Labs
-
Labs:
WBC 18.2 10^3/uL (4.8-10.8) H 08/04/24 06:00
RBC 3.35 10^6/uL (4.20-5.40) L 08/04/24 06:00
Hgb 10.7 g/dL (12.0-16.0) L 08/04/24 06:00
Hct 30.5 % (37.0-47.0) L 08/04/24 06:00
Plt Count 329 10^3/uL (130-400) 08/04/24 06:00
Sodium 132 mmol/L (135-145) L 08/04/24 06:00
Potassium 4.3 mmol/L (3.5-5.1) 08/04/24 06:00
Chloride 97 mmol/L (98-107) L 08/04/24 06:00
Carbon Dioxide 26 mmol/L (22-30) 08/04/24 06:00
BUN 32 mg/dl (7-17) H 08/04/24 06:00
Creatinine 0.6 mg/dL (0.6-1.0) 08/04/24 06:00
eGFR > 60.00 08/04/24 06:00
Glucose 88 mg/dl (70-99) 08/04/24 06:00
Calcium 8.5 mg/dl (8.4-10.2) 08/04/24 06:00
Albumin 4.0 g/dl (3.5-5.0) 07/29/24 20:11
Physical Exam
-
Vital Signs:
Vital Signs
Temp Pulse Resp BP Pulse Ox
97.9 F 77 18 136/98 96
08/04/24 08:04 08/04/24 09:14 08/04/24 08:04 08/04/24 09:14 08/04/24 09:55
Cardiovascular:: Regular rate and rhythm
Respiratory:: Bilateral: CTA
Lung Excursion:: Normal
Abdomen:: Nontender and Soft
Bowel Sounds:: Normal
Extremity Edema:: None: Bilateral:
[2024-08-04 14:48] LABS: Blood Urea Nitrogen 25 mg/dl (7-17); Carbon Dioxide 29 mmol/L (22-30); Chloride 96 mmol/L (98-107); Estimated Creatinine Clearance 69 ml/min; Glucose 113 mg/dl (70-99); Potassium 4.1 mmol/L (3.5-5.1); Sodium 133 mmol/L (135-145); eGFR > 60.00
[2024-08-04 16:21] VITALS: BP 138/68
--- NOTE | 2024-08-04 16:44 | W.PN.HOSP.TC ---
Today's Communication/Plan
-
recheck WBC in AM
Assessment / Plan
Assessment / Plan
Acute on chronic back pain:
Pt states last dose of oxycodone made her very 'wifty'
Continue pain control but adjust medications today--> Tylenol scheduled, add Lidoderm patch, continue oxycodone, but decrease dose , and will stop Dilaudid
X-rays and CT scan evidence of extensive metal hardware
Had appt with orthopedic as outpatient tomorrow as she states she just cancelled will contact and see if she can be seen by them while in the hospital
PT OT--> recommend skilled rehab
call placed and discussed with ortho, Matthew Hollingsworth. Following review of CT scan, recommend eval by neurosurg. Rec brace, has been ordered
Severe hyponatremia:
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
Urine osmolarity 592 and urine sodium 30
She was given 3% upon admission
Continue water restrictions less than 48 ounces a day
Avoid NSAIDs
Nephrology consult appreciated
Continue to monitor sodium in a.m.
119-->126-->129-->133-->134-->131-->133
Leukocytosis:
Likely due to atelectasis
Trending down
Off antibiotic
WBC 18.8-->16.5-->13.3-->14.6-->16.3-->18.2
Continue to monitor original thought was related to steroids, but has been off steroids and has persisted. No fever. If continues to stay elevated consider ID consult
CT scan: Extensive surgical hardware with significant streak artifact, limiting evaluation.
No evidence for compression fracture.
No findings that would suggest discitis or osteomyelitis. No evidence for paraspinal collection. There is no evidence for displacement of bony intervertebral disc spacers.
Discontinuity of left vertical kayla at the L2-3 level, stable from examinations of July 30, 2024. See above discussion.
Transverse lucency through the posterior elements at the L2-3 level, could possibly represent a fracture of the posterior elements, but stable from examination of 3 days earlier. This could represent a chronic lucency through the posterior elements.
The right pedicle screw at T11 appears to extend into the right lateral aspect of the spinal canal, and could possibly contact the right lateral aspect of the spinal cord and/or nerve roots.
Likely trace bilateral pleural effusions.
Chest congestion
CXR: Bibasilar probable atelectasis/scarring, slightly progressed. No convincing acute focal infiltrates.
Constipation:
Start scheduled bowel regimen
did have BM today
Hypertension:
Continue lisinopril 40 mg p.o. daily and diltiazem to 360 mg p.o. daily
Monitor blood pressure adjust medications accordingly
Hyperlipidemia:
Continue atorvastatin 40 mg nightly
DVT prophylaxis:
Lovenox SQ
CODE STATUS:
Full code
Pt requested I call and update son, Cristian 08/03, attempted to call 08/04, left message on VM
Consideration for DC to SNF next 1-2 days depending on WBC
Cristian will be contacting Dr. Wright at [facility] to arrange for eval
Anticipated Discharge: 24 - 48 hours
Subjective/Interval History
-
Date of Service: August 04, 2024
Is glad she is getting the brace
Objective Data
-
Labs:
Laboratory Results
08/04/24 08/04/24
06:00 13:34
WBC 18.2 H
Hgb 10.7 L
Hct 30.5 L
Plt Count 329
Sodium 132 L 133 L
Potassium 4.3 4.1
Chloride 97 L 96 L
Carbon Dioxide 26 29
BUN 32 H 25 H
Creatinine 0.6 0.6
Glucose 88 113 H
Calcium 8.5 9.0
Vital Signs:
Vital Signs
Temp Pulse Resp BP Pulse Ox
98.3 F 87 18 138/68 97
08/04/24 16:21 08/04/24 16:21 08/04/24 16:21 08/04/24 16:21 08/04/24 16:21
I&O
08/03/24 08/04/24 08/05/24
06:59 06:59 06:59
Intake Total 1560 / 1560 360 / 360
Balance 1560 / 1560 360 / 360
Review of Systems
-
History Source: Patient and Coordinated Provider
Constitutional: Denies Fever
EENT: Reports No Symptoms Reported
Respiratory: Reports Cough; Denies Trouble Breathing (hx of asthma)
Cardiac: Reports No Symptoms; Denies Chest Pain
Abdomen/GI: Reports No Symptoms
Musculoskeletal: Reports Joint Pain (back pain)
Physical Exam
-
General: Well Developed, Well Nourished and No Apparent Distress
HEENT: Normocephalic, Atraumatic and Moist Mucous Membranes
Respiratory: Rhonchi (scattered rhonchi rt base, improves with deep inspirations)
Cardiac: Regular Rhythm and S1/S2
GI: Nontender and Nondistended
Musculoskeletal: No Clubbing, No Cyanosis and No Edema
[2024-08-04] MEDS: LOVENOX 40 MG SC (17:12)
[2024-08-04] MEDS: ZOFRAN 4 MG PO (17:12)
[2024-08-04] MEDS: LIPITOR 40 MG PO (17:12)
[2024-08-04] MEDS: ELAVIL 20 MG PO (21:36)
[2024-08-04] MEDS: SINGULAIR 10 MG PO (21:36)
[2024-08-04] MEDS: MIRALAX 8.5 GRAMS PO (21:36)
[2024-08-04 23:35] VITALS: BP 133/73
[2024-08-05] MEDS: TYLENOL 1000 MG PO ×2 (04:58→16:07)
[2024-08-05] MEDS: ROXICODONE 5 MG PO ×3 (06:06→21:09)
[2024-08-05] MEDS: ZOFRAN 4 MG PO (06:06)
[2024-08-05 07:25] VITALS: BP 132/71
[2024-08-05 07:55] LABS: % Basophils 0.4 % (0-2); % Eosinophils 1.5 % (0-6); % Immature Granulocytes 0.7 % (0-0.5); % Lymphocytes 12.8 % (20.5-51.1); % Monocytes 9.3 % (1.7-9.3); % Neutrophils 75.3 % (42.2-75.2); Absolute Basophils 0.1 10^3/uL (0-0.2); Absolute Eosinophils 0.2 10^3/uL (0-0.7); Absolute Immature Granulocytes 0.1 10^3/uL (0-0.05); Absolute Lymphocytes 1.5 10^3/uL (1.2-3.4); Absolute Monocytes 1.1 10^3/uL (0.1-0.6); Absolute Neutrophils 8.8 10^3/uL (1.4-6.5); Hematocrit 31.1 % (37.0-47.0); Hemoglobin 10.5 g/dL (12.0-16.0); Mean Corp Hgb Conc. 33.8 g/dL (33.0-37.0); Mean Corpuscular Hgb 30.9 pg (27.0-31.0); Mean Corpuscular Volume 91.5 fL (81.0-99.0); Nucleated Red Blood Cells % 0 %; Platelet Count 306 10^3/uL (130-400); White Blood Cell Count 11.7 10^3/uL (4.8-10.8)
[2024-08-05] MEDS: CARDIZEM CD 360 MG PO (09:14)
[2024-08-05] MEDS: ZESTRIL 40 MG PO (09:16)
[2024-08-05] MEDS: LOW STRENGTH ASPIRIN 81 MG PO (09:16)
[2024-08-05] MEDS: COLACE 100 MG PO ×2 (09:17→21:04)
[2024-08-05] MEDS: PROTONIX 40 MG PO (09:17)
[2024-08-05] MEDS: LIDOCAINE 4% PATCH 1 PATCH TOPICAL (09:19)
--- NOTE | 2024-08-05 11:06 | W.PN.NEPH.PH ---
Today's Communication / Plan
-
Follow fluid restriction
Assessment/Plan
-
IMP:
Hyponatremia
Back pain - Lumbosacral pain with radiculopathy
HTN
Constipation
leukocytosis
elevated LFTs
OA
Fibromyalgia
Plan:
low dose samsca 08/03
Sodium 133
follow BMP
dc planning
cannot use lasix (intolerance)
avoid just NaCl with HTN
could consider urea in future if sodium falls
Could also use Samsca as needed as an outpatient though coverage may be an issue
-
-
Date of Service: August 05, 2024
CC / HPI / ROS
-
Chief Complaint:
Hyponatremia
History of Present Illness:
sodium stable at 133 status post Samsca yesterday
BP stable
no fever
Review of Systems:
pain better
nausea
no cp or sob
Labs
-
Labs:
WBC 11.7 10^3/uL (4.8-10.8) H 08/05/24 07:23
RBC 3.40 10^6/uL (4.20-5.40) L 08/05/24 07:23
Hgb 10.5 g/dL (12.0-16.0) L 08/05/24 07:23
Hct 31.1 % (37.0-47.0) L 08/05/24 07:23
Plt Count 306 10^3/uL (130-400) 08/05/24 07:23
Sodium 133 mmol/L (135-145) L 08/04/24 13:34
Potassium 4.1 mmol/L (3.5-5.1) 08/04/24 13:34
Chloride 96 mmol/L (98-107) L 08/04/24 13:34
Carbon Dioxide 29 mmol/L (22-30) 08/04/24 13:34
BUN 25 mg/dl (7-17) H 08/04/24 13:34
Creatinine 0.6 mg/dL (0.6-1.0) 08/04/24 13:34
eGFR > 60.00 08/04/24 13:34
Glucose 113 mg/dl (70-99) H 08/04/24 13:34
Calcium 9.0 mg/dl (8.4-10.2) 08/04/24 13:34
Albumin 4.0 g/dl (3.5-5.0) 07/29/24 20:11
Physical Exam
-
Vital Signs:
Vital Signs
Temp Pulse Resp BP Pulse Ox
98.0 F 90 18 132/72 96
08/05/24 07:25 08/05/24 09:14 08/05/24 07:25 08/05/24 09:14 08/05/24 07:25
Cardiovascular:: Regular rate and rhythm
Respiratory:: Bilateral: CTA
Lung Excursion:: Normal
Abdomen:: Nontender and Soft
Bowel Sounds:: Normal
Extremity Edema:: None: Bilateral:
--- NOTE | 2024-08-05 11:23 | W.PN.HOSP.TC ---
Today's Communication/Plan
-
can shower
Assessment / Plan
Assessment / Plan
Acute on chronic back pain:
Pt states last dose of oxycodone made her very 'wifty'
Continue pain control but adjust medications today--> Tylenol scheduled, add Lidoderm patch, continue oxycodone, but decrease dose , prefer not to discharge her on narcotics (she was told) and will stop Dilaudid
X-rays and CT scan evidence of extensive metal hardware
Pt's son made appt with Brijesh Infanteu in [place] for August 25
PT OT--> recommend skilled rehab
call placed and discussed with orthoMatthew. Following review of CT scan, recommend eval by neurosurg. Rec brace, has been ordered
Severe hyponatremia:
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
Urine osmolarity 592 and urine sodium 30
She was given 3% upon admission
Continue water restrictions less than 48 ounces a day
Avoid NSAIDs
Nephrology consult appreciated
Continue to monitor sodium at SNF
119-->126-->129-->133-->134-->131-->133
Leukocytosis:
Likely due to atelectasis
Trending down
Off antibiotic
WBC 18.8-->16.5-->13.3-->14.6-->16.3-->18.2-->11.7
Pt has been using incentive spirometry and lungs are markedly clearer, most likely leukocytosis due to atelectasis
CT scan: Extensive surgical hardware with significant streak artifact, limiting evaluation.
No evidence for compression fracture.
No findings that would suggest discitis or osteomyelitis. No evidence for paraspinal collection. There is no evidence for displacement of bony intervertebral disc spacers.
Discontinuity of left vertical kayla at the L2-3 level, stable from examinations of July 30, 2024. See above discussion.
Transverse lucency through the posterior elements at the L2-3 level, could possibly represent a fracture of the posterior elements, but stable from examination of 3 days earlier. This could represent a chronic lucency through the posterior elements.
The right pedicle screw at T11 appears to extend into the right lateral aspect of the spinal canal, and could possibly contact the right lateral aspect of the spinal cord and/or nerve roots.
Likely trace bilateral pleural effusions.
Chest congestion
08/04 CXR: Bibasilar probable atelectasis/scarring, slightly progressed. No convincing acute focal infiltrates.
Constipation:
Start scheduled bowel regimen
did have BM 08/04
Hypertension: controlled 132/72
Continue lisinopril 40 mg p.o. daily and diltiazem to 360 mg p.o. daily
Monitor blood pressure adjust medications accordingly
Hyperlipidemia:
Continue atorvastatin 40 mg nightly
DVT prophylaxis:
Lovenox SQ
CODE STATUS:
Full code
Call from , bed will be available tomorrow at [facility]
situation reviewed with sonCristian by phone and he has been fully updated
Anticipated Discharge: Within 24 hours
Subjective/Interval History
-
Date of Service: August 05, 2024
Awake, alert, wants to take a shower
Objective Data
-
Labs:
Laboratory Results
08/05/24
07:23
WBC 11.7 H
Hgb 10.5 L
Hct 31.1 L
Plt Count 306
Vital Signs:
Vital Signs
Temp Pulse Resp BP Pulse Ox
98.0 F 90 18 132/72 96
08/05/24 07:25 08/05/24 09:14 08/05/24 07:25 08/05/24 09:14 08/05/24 07:25
I&O
08/04/24 08/05/24 08/06/24
06:59 06:59 06:59
Intake Total 360 / 360 960 / 960
Balance 360 / 360 960 / 960
Review of Systems
-
History Source: Patient and Coordinated Provider
Constitutional: Denies Fever
EENT: Reports No Symptoms Reported
Respiratory: Reports Cough; Denies Trouble Breathing (hx of asthma)
Cardiac: Reports No Symptoms; Denies Chest Pain
Abdomen/GI: Reports No Symptoms
Musculoskeletal: Reports Joint Pain (back pain, back brace in place, does not believe has helped)
Physical Exam
-
General: Well Developed, Well Nourished and No Apparent Distress
HEENT: Normocephalic, Atraumatic and Moist Mucous Membranes
Respiratory: Clear to Auscultation (totally clear) and Rhonchi (resolved)
Cardiac: Regular Rhythm and S1/S2
GI: Nontender and Nondistended
Musculoskeletal: No Clubbing, No Cyanosis and No Edema
[2024-08-05 11:30] VITALS: BP 124/61
[2024-08-05 15:29] VITALS: BP 118/59
--- NOTE | 2024-08-05 15:32 | CM ---
Spoke with Roxy at [facility] said she had a bed for pt 08/16/24.
Pt is in agreement to [facility].IMM reviewed signed on chart.
PTs son Cristian [place]
[facility]
Lindsay cytotechnologist/cytology supervisor on wkend [phone]
report [phone]
fax [phone]
PLAN: To [facility] Thursday
[2024-08-05 16:00] VITALS: BP 117/63
--- NOTE | 2024-08-05 16:52 | CM ---
Roxy at [facility] said she had a bed for pt 08/16/24.IMM reviewed signed on chart.PTs son Cristian said he can drive [place]
Lindsay supervisor nurse on wkend [phone] PLAN: To [facility] Thursday
[2024-08-05] MEDS: LOVENOX 40 MG SC (18:05)
[2024-08-05] MEDS: LIPITOR 40 MG PO (18:08)
[2024-08-05] MEDS: MIRALAX 8.5 GRAMS PO (21:04)
[2024-08-05] MEDS: ELAVIL 20 MG PO (21:04)
[2024-08-05] MEDS: SINGULAIR 10 MG PO (21:05)
[2024-08-05 23:06] VITALS: BP 129/70
[2024-08-06 00:06] VITALS: BP 129/70
[2024-08-06] MEDS: TYLENOL 1000 MG PO ×2 (06:08→17:17)
[2024-08-06 07:25] VITALS: BP 159/88
[2024-08-06] MEDS: PROTONIX 40 MG PO (09:23)
[2024-08-06] MEDS: CARDIZEM CD 360 MG PO (09:23)
[2024-08-06] MEDS: COLACE 100 MG PO (09:24)
[2024-08-06] MEDS: ZESTRIL 40 MG PO (09:24)
[2024-08-06] MEDS: LIDOCAINE 4% PATCH 1 PATCH TOPICAL (09:25)
[2024-08-06] MEDS: LOW STRENGTH ASPIRIN 81 MG PO (09:25)
--- NOTE | 2024-08-06 09:27 | PTCARENOTE ---
pt aox3, pain to back, ongoing, with back brace pt reports more tolerable, 5/10. lidocaine patch applied.pt eating breakfast. call sandy in reach
--- NOTE | 2024-08-06 11:52 | W.PN.NEPH.PH ---
Today's Communication / Plan
-
Continue fluid restriction
Follow-up BMP
Assessment/Plan
-
IMP:
Hyponatremia
Back pain - Lumbosacral pain with radiculopathy
HTN
Constipation
leukocytosis
elevated LFTs
OA
Fibromyalgia
Plan:
low dose samsca 08/03
Sodium 133 on 1212
follow BMP tomorrow
dc planning
cannot use lasix (intolerance)
avoid just NaCl with HTN
could consider urea in future if sodium falls
Could also use Samsca as needed as an outpatient though coverage may be an issue
-
-
Date of Service: August 06, 2024
CC / HPI / ROS
-
Chief Complaint:
Hyponatremia
History of Present Illness:
sodium stable at 133 on 08/04/24
BP stable
no fever
Review of Systems:
pain better
nausea
no cp or sob
Labs
-
Labs:
WBC 11.7 10^3/uL (4.8-10.8) H 08/05/24 07:23
RBC 3.40 10^6/uL (4.20-5.40) L 08/05/24 07:23
Hgb 10.5 g/dL (12.0-16.0) L 08/05/24 07:23
Hct 31.1 % (37.0-47.0) L 08/05/24 07:23
Plt Count 306 10^3/uL (130-400) 08/05/24 07:23
Sodium 133 mmol/L (135-145) L 08/04/24 13:34
Potassium 4.1 mmol/L (3.5-5.1) 08/04/24 13:34
Chloride 96 mmol/L (98-107) L 08/04/24 13:34
Carbon Dioxide 29 mmol/L (22-30) 08/04/24 13:34
BUN 25 mg/dl (7-17) H 08/04/24 13:34
Creatinine 0.6 mg/dL (0.6-1.0) 08/04/24 13:34
eGFR > 60.00 08/04/24 13:34
Glucose 113 mg/dl (70-99) H 08/04/24 13:34
Calcium 9.0 mg/dl (8.4-10.2) 08/04/24 13:34
Albumin 4.0 g/dl (3.5-5.0) 07/29/24 20:11
Physical Exam
-
Vital Signs:
Vital Signs
Temp Pulse Resp BP Pulse Ox
97.5 F 80 16 159/88 96
08/06/24 07:25 08/06/24 07:25 08/06/24 07:25 08/06/24 07:25 08/06/24 07:25
Cardiovascular:: Regular rate and rhythm
Respiratory:: Bilateral: CTA
Lung Excursion:: Normal
Abdomen:: Nontender and Soft
Bowel Sounds:: Normal
Extremity Edema:: None: Bilateral:
[2024-08-06 15:25] VITALS: BP 123/62
--- NOTE | 2024-08-06 15:38 | W.PN.HOSP.TC ---
Today's Communication/Plan
-
dc to SNF
Assessment / Plan
Assessment / Plan
Acute on chronic back pain:
Pt states last dose of oxycodone made her very 'wifty'
Continue pain control but adjust medications today--> Tylenol scheduled, add Lidoderm patch, continue oxycodone, but decrease dose , prefer not to discharge her on narcotics (she was told) and will stop Dilaudid
X-rays and CT scan evidence of extensive metal hardware
Pt's son made appt with Brijesh Crowley in [place] for August 25
PT OT--> recommend skilled rehab
call placed and discussed with orthoMatthew. Following review of CT scan, recommended eval by neurosurg. Was seen by Oma Jewell of Neurosurg, Rec brace, has been ordered and placed
Severe hyponatremia:
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
Urine osmolarity 592 and urine sodium 30
She was given 3% upon admission
Continue water restrictions less than 48 ounces a day
Avoid NSAIDs
Nephrology consult appreciated
Continue to monitor sodium at [facility]
119-->126-->129-->133-->134-->131-->133
Leukocytosis:
Likely due to atelectasis
Trending down
Off antibiotic
WBC 18.8-->16.5-->13.3-->14.6-->16.3-->18.2-->11.7
Pt has been using incentive spirometry and lungs are markedly clearer, most likely leukocytosis due to atelectasis
CT scan: Extensive surgical hardware with significant streak artifact, limiting evaluation.
No evidence for compression fracture.
No findings that would suggest discitis or osteomyelitis. No evidence for paraspinal collection. There is no evidence for displacement of bony intervertebral disc spacers.
Discontinuity of left vertical kayla at the L2-3 level, stable from examinations of July 30, 2024. See above discussion.
Transverse lucency through the posterior elements at the L2-3 level, could possibly represent a fracture of the posterior elements, but stable from examination of 3 days earlier. This could represent a chronic lucency through the posterior elements.
The right pedicle screw at T11 appears to extend into the right lateral aspect of the spinal canal, and could possibly contact the right lateral aspect of the spinal cord and/or nerve roots.
Likely trace bilateral pleural effusions.
Chest congestion
08/04 CXR: Bibasilar probable atelectasis/scarring, slightly progressed. No convincing acute focal infiltrates.
Constipation:
Start scheduled bowel regimen
did have BM 08/04 and again today 08/06
Hypertension: controlled 132/72
Continue lisinopril 40 mg p.o. daily and diltiazem to 360 mg p.o. daily
Monitor blood pressure adjust medications accordingly
Hyperlipidemia:
Continue atorvastatin 40 mg nightly
DVT prophylaxis:
Lovenox SQ
CODE STATUS:
Full code
Call from , bed will be available tomorrow at [facility]
situation reviewed with sonCristian by phone 08/05 and he has been fully updated
DC to SNF
More than 30 minutes spent in discharge including
Final examination of the patient
Summarizing hospital stay
Instructions for continuing care to all relevant caregivers
Preparation of discharge records, prescriptions, and referral forms
Total time spent (in minutes):
45
Anticipated Discharge: Today
Subjective/Interval History
-
Date of Service: August 06, 2024
Back is doing better with the brace
Objective Data
-
Vital Signs:
Vital Signs
Temp Pulse Resp BP Pulse Ox
97.5 F 80 16 159/88 96
08/06/24 07:25 08/06/24 07:25 08/06/24 07:25 08/06/24 07:25 08/06/24 07:25
I&O
08/05/24 08/06/24 08/07/24
06:59 06:59 06:59
Intake Total 960 / 960 480 / 480
Balance 960 / 960 480 / 480
Review of Systems
-
History Source: Patient and Coordinated Provider
Constitutional: Denies Fever
EENT: Reports No Symptoms Reported
Respiratory: Reports Cough; Denies Trouble Breathing (hx of asthma)
Cardiac: Reports No Symptoms; Denies Chest Pain
Abdomen/GI: Reports No Symptoms
Musculoskeletal: Reports Joint Pain (back pain, back brace in place, does not believe has helped)
Physical Exam
-
General: Well Developed, Well Nourished and No Apparent Distress
HEENT: Normocephalic, Atraumatic and Moist Mucous Membranes
Respiratory: Clear to Auscultation (totally clear) and Rhonchi (resolved)
Cardiac: Regular Rhythm and S1/S2
GI: Nontender and Nondistended
Musculoskeletal: No Clubbing, No Cyanosis and No Edema
--- NOTE | 2024-08-06 16:14 | CM ---
Pt medically clear for d/c.
Pt need SNF and has been accepted at [facility] today.
Pt's son will transport to rehab
IMM reviewed, copy on chart
[facility]
Report: [phone]

Plan: [facility] SNF
--- NOTE | 2024-08-06 16:27 | PTCARENOTE ---
report called to aly ESCOBAR at [facility]. pt to be transported by karen this evening, pt aware, resting
--- NOTE | 2024-08-06 16:30 | PTCARENOTE ---
Assumed care of pt. at this time. Pt. without pain at this time, VSS. Pt. discharge in process and pt. to notify son for transportation.
--- NOTE | 2024-08-06 16:54 | W.DS.TRANS ---
DC Summary - Ultrasound Coordinator
-
Discharge Instructions:
Discharge Diagnosis/Procedures Hyponatremia, Chronic Back Pain
Diet Regular
Activity With assistance
Driving Restrictions No driving
Bathing Restrictions None
Blood Work BMP on Wednesday 08/08, then weekly, forward
results to Dr. Anton, [facility] in 1 week
Instructions:
Stand-Alone Forms:
Changes to Home Medications: Yes
Discharge Medications:
DC Medications w/original date entered in [employer]
Parafon Forte: 500 mg PO PRN PRN pain 12/04/10
cholecalciferol (vitamin D3) 50 mcg (2,000 unit) capsule (Vitamin D3) 2,000 unit PO DAILY 12/04/10
docusate sodium 100 mg capsule 1 cap PO BID 12/04/10
fluticasone propionate 50 mcg/actuation nasal spray,suspension 2 spray intranasal HS 12/04/10
montelukast 10 mg tablet (Singulair) 10 mg PO HS 12/04/10
vdhchynq-qsg-VS 0.4 mg-calcium 162 mg-iron 18 aw-nkztnfo-pmakim tablet 1 ea PO DAILY 12/04/10
pantoprazole 40 mg tablet,delayed release 40 mg PO DAILY 12/04/10
amitriptyline 10 mg tablet 20 mg PO HS 12/30/10
aspirin 81 mg chewable tablet 81 mg PO QPM 12/30/10
guaifenesin 600 mg tablet,extended release 600 mg PO BID 12/30/10
polyethylene glycol 3350 17 gram oral powder packet 8.5 grams PO HS 12/30/10
quinapril 20 mg tablet 40 mg PO DAILY 12/30/10
atorvastatin 40 mg tablet 40 mg PO QPM 01/19/17
Lactobacillus acidophilus (Acidophilus capsule) 1 cap PO DAILY 02/08/21
Pro-Air Inhaler 2 puff inhalation PRN PRN allergies 02/08/21
Ruba 1 PO QPM 07/30/24
diltiazem HCl 360 mg capsule,24 hr,extended release 360 mg PO DAILY 07/30/24
acetaminophen 500 mg tablet 1,000 mg (2 x 500 mg) PO Q6H PRN mild pain #0 tabs 08/06/24
bisacodyl 10 mg rectal suppository 10 mg NV [id number] PRN constipation #0 ea 08/06/24
lidocaine 4 % topical patch 1 patch topical DAILY #0 ea 08/06/24
Home Medication Changes
Celebrex stopped
Fiorecet stopped
Pending Results: No
--- NOTE | 2024-08-06 17:36 | PTCARENOTE ---
Pt. escorted out of hospital via wheelchair by PCT with all belongings and discharge instructions. Son, Cristian to transport to [facility]. Pt. stable at time of discharge.
== END 2024-08-06 18:10 | DRG 644 ==
LOC: 4 EAST ACU 04:10
PROVIDERS: Emergency Medicine; Hospitalist; Specialist; ADMITTING PHYSICIAN Internal Medicine; ATTENDING PHYSICIAN Internal Medicine; CONSULT PHYSICIAN Internal Medicine; CONSULT PHYSICIAN Neurological Surgery; CONSULT PHYSICIAN Orthopaedic Surgery; EMERGENCY PHYSICIAN Emergency Medicine; FAMILY PHYSICIAN Family Medicine
DX: E22.2 Syndrome of inappropriate secretion of antidiuretic hormone (principal); J98.11 Atelectasis; G89.29 Other chronic pain; M54.16 Radiculopathy, lumbar region; D72.829 Elevated white blood cell count, unspecified; K59.00 Constipation, unspecified; I10 Essential (primary) hypertension; E78.00 Pure hypercholesterolemia, unspecified; R26.2 Difficulty in walking, not elsewhere classified; J45.909 Unspecified asthma, uncomplicated
CPT/HCPCS: 71045; 72100; 72131; 74177; 80048; 80053; 81003; 81015; 82533; 82962; 83930; 83935; 84300; 84443; 84550; 85025; 85027; 85652; 86140; 87086; 96361; 96374; 97116; 97163; 97166; 97530; 97535; 99285; Q9967

== ENCOUNTER → 2024-08-10 11:45 | Outpatient (REF) | payer OTHER, MEDICARE, SELFPAY ==
[2024-08-10 12:28] LABS: % Basophils 0.5 % (0-2); % Eosinophils 1.1 % (0-6); % Immature Granulocytes 0.5 % (0-0.5); % Lymphocytes 30.7 % (20.5-51.1); % Monocytes 7.2 % (1.7-9.3); Absolute Basophils 0.1 10^3/uL (0-0.2); Absolute Eosinophils 0.1 10^3/uL (0-0.7); Absolute Immature Granulocytes 0.1 10^3/uL (0-0.05); Absolute Lymphocytes 2.9 10^3/uL (1.2-3.4); Absolute Monocytes 0.7 10^3/uL (0.1-0.6); Absolute Neutrophils 5.7 10^3/uL (1.4-6.5); Hematocrit 35.2 % (37.0-47.0); Hemoglobin 11.9 g/dL (12.0-16.0); Mean Corp Hgb Conc. 33.8 g/dL (33.0-37.0); Mean Corpuscular Hgb 30.9 pg (27.0-31.0); Mean Corpuscular Volume 91.4 fL (81.0-99.0); Mean Platelet Volume 9.9 fL (7.4-10.4); Nucleated Red Blood Cells % 0 %; Platelet Count 350 10^3/uL (130-400); Red Blood Cell Count 3.85 10^6/uL (4.20-5.40); Red Cell Dist. Width 14.3 % (11.5-14.5); White Blood Cell Count 9.5 10^3/uL (4.8-10.8)
[2024-08-10 12:39] LABS: ALT (SGPT) 90 U/L (0-35); AST (SGOT) 47 U/L (14-36); Albumin 4.2 g/dl (3.5-5.0); Alkaline Phosphatase 169 U/L (38-126); Blood Urea Nitrogen 14 mg/dl (7-17); Calcium 9.5 mg/dl (8.4-10.2); Carbon Dioxide 25 mmol/L (22-30); Chloride 98 mmol/L (98-107); Glucose 94 mg/dl (70-99); Potassium 4.4 mmol/L (3.5-5.1); Sodium 132 mmol/L (135-145); Total Bilirubin 0.6 mg/dl (0.2-1.3); Total Protein 6.6 g/dl (6.3-8.2); eGFR > 60.00
== END ==
LOC: OLABP 11:45
PROVIDERS: ATTENDING PHYSICIAN Family Medicine
DX: Z85.3 Personal history of malignant neoplasm of breast (principal); E87.1 Hypo-osmolality and hyponatremia; D72.829 Elevated white blood cell count, unspecified; I10 Essential (primary) hypertension; M79.7 Fibromyalgia
CPT/HCPCS: 36415; 80053; 85025

== ENCOUNTER → 2024-08-19 09:14 | Outpatient (REF) | payer OTHER, MEDICARE, SELFPAY ==
[2024-08-19 11:18] LABS: % Basophils 0.6 % (0-2); % Immature Granulocytes 0.4 % (0-0.5); % Lymphocytes 24.4 % (20.5-51.1); % Monocytes 10.6 % (1.7-9.3); Absolute Eosinophils 0.1 10^3/uL (0-0.7); Absolute Lymphocytes 1.7 10^3/uL (1.2-3.4); Absolute Monocytes 0.7 10^3/uL (0.1-0.6); Absolute Neutrophils 4.3 10^3/uL (1.4-6.5); Hematocrit 35.8 % (37.0-47.0); Hemoglobin 12.1 g/dL (12.0-16.0); Mean Corp Hgb Conc. 33.8 g/dL (33.0-37.0); Mean Corpuscular Hgb 31.3 pg (27.0-31.0); Mean Corpuscular Volume 92.7 fL (81.0-99.0); Mean Platelet Volume 9.5 fL (7.4-10.4); Nucleated Red Blood Cells % 0 %; Platelet Count 356 10^3/uL (130-400); Red Blood Cell Count 3.86 10^6/uL (4.20-5.40)
[2024-08-19 11:31] LABS: Blood Urea Nitrogen 13 mg/dl (7-17); Calcium 9.5 mg/dl (8.4-10.2); Carbon Dioxide 26 mmol/L (22-30); Chloride 98 mmol/L (98-107); Glucose 95 mg/dl (70-99); Potassium 4.3 mmol/L (3.5-5.1); Sodium 136 mmol/L (135-145); eGFR > 60.00
== END ==
LOC: OLABP 09:14
PROVIDERS: ATTENDING PHYSICIAN Family Medicine
DX: E87.1 Hypo-osmolality and hyponatremia (principal); D72.829 Elevated white blood cell count, unspecified; I10 Essential (primary) hypertension; M79.7 Fibromyalgia; Z85.3 Personal history of malignant neoplasm of breast
CPT/HCPCS: 36415; 80048; 85025

== ENCOUNTER → 2024-08-31 10:23 | Outpatient (REF) | payer MEDICARE, OTHER, SELFPAY ==
[2024-08-31 12:30] LABS: Blood Urea Nitrogen 15 mg/dl (7-17); Calcium 9.4 mg/dl (8.4-10.2); Carbon Dioxide 29 mmol/L (22-30); Glucose 94 mg/dl (70-99); Potassium 3.7 mmol/L (3.5-5.1); Sodium 138 mmol/L (135-145); eGFR > 60.00
[2024-08-31 12:53] LABS: Chloride 99 mmol/L (98-107)
== END ==
LOC: OLABLV 10:23
PROVIDERS: ATTENDING PHYSICIAN Family Medicine
DX: Z13.228 Encounter for screening for other metabolic disorders (principal)
CPT/HCPCS: 36415; 80048

== ENCOUNTER → 2024-09-07 10:04 | Outpatient (REF) | payer MEDICARE, OTHER, SELFPAY ==
[2024-09-07 12:35] LABS: Blood Urea Nitrogen 14 mg/dl (7-17); Calcium 9.6 mg/dl (8.4-10.2); Carbon Dioxide 27 mmol/L (22-30); Chloride 101 mmol/L (98-107); Glucose 90 mg/dl (70-99); Potassium 4.1 mmol/L (3.5-5.1); Sodium 137 mmol/L (135-145); eGFR > 60.00
== END ==
LOC: OLABLV 10:04
PROVIDERS: ATTENDING PHYSICIAN Family Medicine
DX: Z13.228 Encounter for screening for other metabolic disorders (principal)
CPT/HCPCS: 36415; 80048

== ENCOUNTER → 2024-09-14 11:05 | Outpatient (REF) | payer MEDICARE, OTHER, SELFPAY ==
[2024-09-14 12:21] LABS: Blood Urea Nitrogen 16 mg/dl (7-17); Calcium 9.3 mg/dl (8.4-10.2); Carbon Dioxide 27 mmol/L (22-30); Chloride 101 mmol/L (98-107); Glucose 86 mg/dl (70-99); Potassium 4.6 mmol/L (3.5-5.1); Sodium 138 mmol/L (135-145); eGFR > 60.00
== END ==
LOC: OLABLV 11:05
PROVIDERS: ATTENDING PHYSICIAN Family Medicine
DX: Z13.228 Encounter for screening for other metabolic disorders (principal)
CPT/HCPCS: 36415; 80048

== ENCOUNTER → 2024-09-21 11:38 | Outpatient (REF) | payer MEDICARE, OTHER, SELFPAY ==
[2024-09-21 16:39] LABS: Blood Urea Nitrogen 17 mg/dl (7-17); Calcium 8.9 mg/dl (8.4-10.2); Carbon Dioxide 28 mmol/L (22-30); Chloride 99 mmol/L (98-107); Glucose 79 mg/dl (70-99); Potassium 4.5 mmol/L (3.5-5.1); Sodium 137 mmol/L (135-145); eGFR > 60.00
== END ==
LOC: OLABLV 11:38
PROVIDERS: ATTENDING PHYSICIAN Family Medicine
DX: Z13.228 Encounter for screening for other metabolic disorders (principal)
CPT/HCPCS: 36415; 80048

== ENCOUNTER → 2024-09-28 09:45 | Outpatient (REF) | payer MEDICARE, OTHER, SELFPAY ==
[2024-09-28 12:08] LABS: Blood Urea Nitrogen 16 mg/dl (7-17); Calcium 9.1 mg/dl (8.4-10.2); Carbon Dioxide 28 mmol/L (22-30); Chloride 99 mmol/L (98-107); Glucose 85 mg/dl (70-99); Potassium 4.1 mmol/L (3.5-5.1); Sodium 136 mmol/L (135-145); eGFR > 60.00
== END ==
LOC: OLABLV 09:45
PROVIDERS: ATTENDING PHYSICIAN Family Medicine
DX: Z13.228 Encounter for screening for other metabolic disorders (principal)
CPT/HCPCS: 36415; 80048

== ENCOUNTER → 2024-11-02 10:26 | Outpatient (REF) | payer MEDICARE, OTHER, SELFPAY ==
[2024-11-02 12:31] LABS: % Basophils 0.6 % (0-2); % Immature Granulocytes 0.4 % (0-0.5); % Lymphocytes 25.6 % (20.5-51.1); % Monocytes 12.2 % (1.7-9.3); % Neutrophils 59.2 % (42.2-75.2); Absolute Basophils 0.1 10^3/uL (0-0.2); Absolute Eosinophils 0.2 10^3/uL (0-0.7); Absolute Lymphocytes 2.3 10^3/uL (1.2-3.4); Absolute Monocytes 1.1 10^3/uL (0.1-0.6); Absolute Neutrophils 5.4 10^3/uL (1.4-6.5); Hematocrit 33.6 % (37.0-47.0); Hemoglobin 11.2 g/dL (12.0-16.0); Mean Corp Hgb Conc. 33.3 g/dL (33.0-37.0); Mean Corpuscular Hgb 32.1 pg (27.0-31.0); Mean Corpuscular Volume 96.3 fL (81.0-99.0); Mean Platelet Volume 9.1 fL (7.4-10.4); Nucleated Red Blood Cells % 0 %; Platelet Count 345 10^3/uL (130-400); Red Blood Cell Count 3.49 10^6/uL (4.20-5.40); Red Cell Dist. Width 13.7 % (11.5-14.5); White Blood Cell Count 9.1 10^3/uL (4.8-10.8)
[2024-11-02 12:38] LABS: ALT (SGPT) 22 U/L (0-35); AST (SGOT) 25 U/L (14-36); Albumin 4.4 g/dl (3.5-5.0); Alkaline Phosphatase 149 U/L (38-126); Blood Urea Nitrogen 19 mg/dl (7-17); Carbon Dioxide 26 mmol/L (22-30); Chloride 100 mmol/L (98-107); Glucose 89 mg/dl (70-99); HDL Cholesterol 43 mg/dl; LDL Cholesterol, Calculated 78 mg/dl; Potassium 4.3 mmol/L (3.5-5.1); Sodium 136 mmol/L (135-145); Total Bilirubin 0.8 mg/dl (0.2-1.3); Total Cholesterol 152 mg/dl (50-199); Total Protein 6.6 g/dl (6.3-8.2); Triglyceride 158 mg/dl (10-149); Very Low Density Lipoprotein 31 mg/dl (0-30); eGFR > 60.00
== END ==
LOC: OLABPV 10:26
PROVIDERS: ATTENDING PHYSICIAN Family Medicine
DX: R53.83 Other fatigue (principal); R74.8 Abnormal levels of other serum enzymes; E78.2 Mixed hyperlipidemia
CPT/HCPCS: 36415; 80053; 80061; 85025

== ENCOUNTER → 2025-03-07 10:27 | Outpatient (REF) | payer MEDICARE, OTHER, SELFPAY ==
[2025-03-07 12:34] LABS: Hematocrit 35.4 % (37.0-47.0); Hemoglobin 12.2 g/dL (12.0-16.0); Mean Corp Hgb Conc. 34.5 g/dL (33.0-37.0); Mean Corpuscular Volume 92.4 fL (81.0-99.0); Nucleated Red Blood Cells % 0 %; Platelet Count 345 10^3/uL (130-400); Red Cell Dist. Width 14.0 % (11.5-14.5)
[2025-03-07 14:06] LABS: ALT (SGPT) 25 U/L (0-35); AST (SGOT) 23 U/L (14-36); Albumin 4.4 g/dl (3.5-5.0); Alkaline Phosphatase 140 U/L (38-126); Blood Urea Nitrogen 14 mg/dl (7-17); Calcium 9.8 mg/dl (8.4-10.2); Carbon Dioxide 27 mmol/L (22-30); Chloride 106 mmol/L (98-107); Glucose 93 mg/dl (70-99); HDL Cholesterol 49 mg/dl; Iron 63 ug/dl (37-170); LDL Cholesterol, Calculated 79 mg/dl; Potassium 4.4 mmol/L (3.5-5.1); Sodium 139 mmol/L (135-145); Total Protein 6.9 g/dl (6.3-8.2); Very Low Density Lipoprotein 14 mg/dl (0-30); eGFR > 60.00
[2025-03-07 14:15] LABS: Total Iron Binding Capacity 289 ug/dl (265-497)
== END ==
LOC: OLABPV 10:27
PROVIDERS: ATTENDING PHYSICIAN Family Medicine
DX: E78.2 Mixed hyperlipidemia (principal); D64.9 Anemia, unspecified
CPT/HCPCS: 36415; 80053; 80061; 83540; 83550; 85025

== ENCOUNTER → 2025-04-17 13:31 | Outpatient (REF) | payer MEDICARE, OTHER, SELFPAY | LOC: RAD 13:31 | PROVIDERS: ATTENDING PHYSICIAN Internal Medicine Endocrinology, Diabetes & Metabolism; FAMILY PHYSICIAN Family Medicine | DX: E04.2 Nontoxic multinodular goiter (principal) | CPT/HCPCS: 76536 ==

== ENCOUNTER → 2025-04-27 12:43 | Outpatient (REF) | payer MEDICARE, OTHER, SELFPAY | LOC: RAD 12:43 | PROVIDERS: ATTENDING PHYSICIAN Pain Medicine Interventional Pain Medicine; FAMILY PHYSICIAN Family Medicine | DX: M54.12 Radiculopathy, cervical region (principal) | CPT/HCPCS: 72125 ==

== ENCOUNTER → 2025-05-09 13:43 | Outpatient (REF) | payer MEDICARE, OTHER, SELFPAY | LOC: WDC 13:43 | PROVIDERS: ATTENDING PHYSICIAN Family Medicine | DX: Z12.31 Encounter for screening mammogram for malignant neoplasm of breast (principal) | CPT/HCPCS: 77063; 77067 ==

== ENCOUNTER → 2025-05-15 12:35 | Outpatient (REF) | payer MEDICARE, OTHER, SELFPAY | LOC: RAD 12:35 | PROVIDERS: ATTENDING PHYSICIAN Nurse Practitioner; FAMILY PHYSICIAN Family Medicine; OTHER PHYSICIAN Internal Medicine Gastroenterology | DX: R74.8 Abnormal levels of other serum enzymes (principal) | CPT/HCPCS: 74150 ==

== ENCOUNTER → 2025-05-19 09:56 | Outpatient (REF) | payer MEDICARE, OTHER, SELFPAY ==
[2025-05-19 10:27] LABS: ALT (SGPT) 26 U/L (0-35); AST (SGOT) 21 U/L (14-36); Albumin 4.4 g/dl (3.5-5.0); Alkaline Phosphatase 123 U/L (38-126); Total Protein 7.0 g/dl (6.3-8.2)
== END ==
LOC: OLABPV 09:56
PROVIDERS: ATTENDING PHYSICIAN Nurse Practitioner
DX: R74.8 Abnormal levels of other serum enzymes (principal)
CPT/HCPCS: 36415; 80076

== ENCOUNTER → 2025-06-15 09:32 | Outpatient (REF) | payer MEDICARE, OTHER, SELFPAY | LOC: RAD 09:32 | PROVIDERS: ATTENDING PHYSICIAN Internal Medicine Gastroenterology; FAMILY PHYSICIAN Family Medicine | DX: R74.8 Abnormal levels of other serum enzymes (principal) | CPT/HCPCS: 76700 ==

== ENCOUNTER → 2025-07-11 09:38 | Outpatient (REF) | payer MEDICARE, OTHER, SELFPAY ==
[2025-07-11 11:43] LABS: ALT (SGPT) 28 U/L (0-35); AST (SGOT) 27 U/L (14-36); Albumin 4.6 g/dl (3.5-5.0); Alkaline Phosphatase 119 U/L (38-126); Blood Urea Nitrogen 19 mg/dl (7-17); Calcium 10.2 mg/dl (8.4-10.2); Carbon Dioxide 28 mmol/L (22-30); Chloride 100 mmol/L (98-107); Glucose 99 mg/dl (70-99); HDL Cholesterol 54 mg/dl; LDL Cholesterol, Calculated 96 mg/dl; Potassium 4.5 mmol/L (3.5-5.1); Sodium 137 mmol/L (135-145); Total Protein 7.0 g/dl (6.3-8.2); Very Low Density Lipoprotein 25 mg/dl (0-30); eGFR > 60.00
[2025-07-11 12:30] LABS: Glycohemoglobin (HgbA1c) 6.1 % (4.0-5.9)
== END ==
LOC: OLABPV 09:38
PROVIDERS: ATTENDING PHYSICIAN Family Medicine
DX: E78.2 Mixed hyperlipidemia (principal); R73.03 Prediabetes
CPT/HCPCS: 36415; 80053; 80061; 83036